=== PATIENT | female | born 1975 | race Hispanic/Latino ===

== ENCOUNTER → 2018-05-29 | Outpatient (CLI) | payer OTHER | END | disposition home or self-care (01) | LOC: RAH 07:25 | PROVIDERS: ATTEND Family Medicine | DX: M75.42 Impingement syndrome of left shoulder (principal); M75.41 Impingement syndrome of right shoulder | CPT/HCPCS: 73221 ==

== ENCOUNTER 2018-10-13 02:57 | Emergency (ER) | payer OTHER ==
[2018-10-13 03:30] LABS: BASOPHILS % (AUTO) 0.5 % (0.0-5.0); EOSINOPHILS % (AUTO) 1.1 % (0.0-8.0); LYMPHOCYTES % (AUTO) 24.2 % (21.0-51.0); MEAN CORPUSCULAR HEMOGLOBIN 30.5 pg (27.0-33.0); MEAN CORPUSCULAR HGB CONC 33.3 g/dL (32.0-36.0); MEAN CORPUSCULAR VOLUME 91.8 fL (79-99); NEUTROPHILS % (AUTO) 67.2 % (40.0-77.0); NUCLEATED RED BLOOD CELLS 0.2 % (0.0-0.19); PLATELET COUNT (AUTO) 314 K/uL (130-400); RED BLOOD CELL COUNT(AUTO) 4.57 MIL/uL (4.00-5.50); RED CELL DISTRIBUTION WIDTH 14.7 % (11.0-15.5); WHITE BLOOD COUNT (AUTO) 11.1 K/uL (4.8-10.8)
[2018-10-13 03:37] LABS: APPEARANCE,URINE CLEAR (CLEAR); BILIRUBIN,URINE NEGATIVE (NEGATIVE); COLOR,URINE YELLOW (YELLOW); GLUCOSE, URINE (UA) NEGATIVE (NEGATIVE); KETONES,URINE 5 mg/dL (NEGATIVE); LEUKOCYTE ESTERASE ,URINE NEGATIVE (NEGATIVE); NITRATE,URINE NEGATIVE (NEGATIVE); OCCULT BLOOD,URINE NEGATIVE (NEGATIVE); PROTEIN,URINE NEGATIVE (NEGATIVE); UROBILINOGEN,URINE 0.2 mg/dL (0.2-1.0)
[2018-10-13 03:39] LABS: HCG,QUAL RESULT NEGATIVE (NEGATIVE)
[2018-10-13 03:39] LABS: CREATININE 0.8 mg/dL (0.5-1.5); POTASSIUM 3.9 mmol/L (3.5-5.1)
[2018-10-13] MEDS ORDERED: MORPHINE SULFATE 4 MG/1ML SYG ONE ×2 (03:39→06:26)
[2018-10-13] MEDS ORDERED: ONDANSETRON HCL 4 MG/2 ML VIAL ONE (03:39)
[2018-10-13 03:43] LABS: ALBUMIN 3.7 g/dL (3.5-5.0); BILIRUBIN,TOTAL 0.4 mg/dL (0.2-1.0); TOTAL PROTEIN, SERUM 7.3 g/dL (6.0-8.3)
[2018-10-13] MEDS ORDERED: IOHEXOL-350 75 ML VIAL IV ONE (04:16)
== END 2018-10-13 07:56 | disposition home or self-care (01) ==
LOC: EDH 02:57
DX: R10.10 Upper abdominal pain, unspecified (principal); R11.2 Nausea with vomiting, unspecified; R19.7 Diarrhea, unspecified; E11.9 Type 2 diabetes mellitus without complications; Z88.8 Allergy status to other drugs, medicaments and biological substances; Z90.49 Acquired absence of other specified parts of digestive tract; Z72.0 Tobacco use
CPT/HCPCS: 36415; 74177; 80053; 81003; 81025; 83690; 84484; 85025; 93005; 96361; 96374; 96375; 96376; 99284; J2270 ×2; J2405; Q9967

== ENCOUNTER 2021-02-02 11:49 | Emergency (ER) | payer OTHER ==
[~2021-02-02] VITALS: Ht 167.6 cm; Wt 113.4 kg
[2021-02-02 11:51] VITALS: BP 125/81
[2021-02-02] MEDS ORDERED: LIDOCAINE HCL 2% VISCOUS 15 ML UDCUP PO ONE (14:30)
[2021-02-02] MEDS ORDERED: FAMOTIDINE 20MG VIAL IV ONE (14:30)
[2021-02-02] MEDS ORDERED: ONDANSETRON 4MG INJ IVP ONE (14:30)
[2021-02-02 14:42] LABS: BASOPHILS % (AUTO) 0.5 % (0.0-5.0); EOSINOPHILS % (AUTO) 1.9 % (0.0-8.0); HEMATOCRIT 41.1 % (36-48); LYMPHOCYTES % (AUTO) 42.8 % (21.0-51.0); MEAN CORPUSCULAR HEMOGLOBIN 30.2 pg (27.0-33.0); MEAN CORPUSCULAR HGB CONC 32.1 g/dL (32.0-36.0); MEAN CORPUSCULAR VOLUME 94.1 fL (79-99); MONOCYTES % (AUTO) 7.4 % (3.0-13.0); NEUTROPHILS % (AUTO) 46.7 % (40.0-77.0); PLATELET COUNT (AUTO) 256 K/uL (130-400); RED BLOOD CELL COUNT(AUTO) 4.37 MIL/uL (4.00-5.50); RED CELL DISTRIBUTION WIDTH 14.7 % (11.0-15.5); WHITE BLOOD COUNT (AUTO) 9.9 K/uL (4.8-10.8)
[2021-02-02 14:45] LABS: APPEARANCE,URINE Clear (CLEAR); BILIRUBIN,URINE Negative (NEGATIVE); COLOR,URINE Yellow (YELLOW); GLUCOSE, URINE (UA) >=1000 mg/dL (NEGATIVE); KETONES,URINE Trace mg/dL (NEGATIVE); LEUKOCYTE ESTERASE ,URINE Negative (NEGATIVE); NITRATE,URINE Negative (NEGATIVE); OCCULT BLOOD,URINE Negative (NEGATIVE); PROTEIN,URINE Negative (NEGATIVE); UROBILINOGEN,URINE 0.2 mg/dL (0.2-1.0)
[2021-02-02 14:49] LABS: HCG,QUAL RESULT NEGATIVE (NEGATIVE)
[2021-02-02 14:56] LABS: CREATININE 0.6 mg/dL (0.5-1.5); POTASSIUM 3.8 mmol/L (3.5-5.1)
[2021-02-02 15:01] LABS: ALBUMIN 3.5 g/dL (3.5-5.0); BACTERIA,URINE Few /HPF (None Seen); BILIRUBIN,TOTAL 0.4 mg/dL (0.2-1.0); RBC,URINE 0-1 /HPF (0-1); SQUAMOUS EPITHELIAL CELL,UR Few /HPF (0-2); TOTAL PROTEIN, SERUM 7.1 g/dL (6.0-8.3)
[2021-02-02 15:24] VITALS: BP 106/60
[2021-02-02] MEDS ORDERED: MAG/ALUM/SIMETH 30 ML UDCUP PO ONE (15:30)
[2021-02-02] MEDS ORDERED: FAMO-136 PO (15:34)
[2021-02-02] MEDS ORDERED: ONDA4TAB10 PO (15:34)
[2021-02-02] MEDS ORDERED: DICY20TA2 PO (15:34)
== END 2021-02-02 16:00 | disposition home or self-care (01) ==
LOC: EDH 11:49
DX: K29.70 Gastritis, unspecified, without bleeding (principal); E66.9 Obesity, unspecified; E11.9 Type 2 diabetes mellitus without complications; I10 Essential (primary) hypertension; Z68.41 Body mass index [BMI] 40.0-44.9, adult; Z79.899 Other long term (current) drug therapy
CPT/HCPCS: 36415; 71045; 76705; 80053; 81001; 81025; 83690; 84484; 85025; 93005; 96374; 96375; 99285; J2405; J3490

== ENCOUNTER → 2022-03-02 | Outpatient (CLI) | payer OTHER ==
[~2022-03-02] MED LIST: DICY20TA2 PO; FAMO-136 PO; ONDA4TAB10 PO
== END | disposition home or self-care (01) ==
LOC: SLP 20:35
PROVIDERS: ATTEND Family Medicine
DX: G47.33 Obstructive sleep apnea (adult) (pediatric) (principal)
CPT/HCPCS: 95810

== ENCOUNTER → 2022-03-03 | Outpatient (CLI) | payer OTHER | END | disposition home or self-care (01) | LOC: RAH 13:52 | PROVIDERS: ATTEND Family Medicine | DX: I11.9 Hypertensive heart disease without heart failure (principal); E78.5 Hyperlipidemia, unspecified; I34.0 Nonrheumatic mitral (valve) insufficiency; E66.9 Obesity, unspecified; E11.9 Type 2 diabetes mellitus without complications; I36.1 Nonrheumatic tricuspid (valve) insufficiency; I31.3 Pericardial effusion (noninflammatory); G47.33 Obstructive sleep apnea (adult) (pediatric) | CPT/HCPCS: 93306 ==

== ENCOUNTER → 2022-03-19 | Outpatient (CLI) | payer OTHER | END | disposition home or self-care (01) | LOC: SLP 20:17 | PROVIDERS: ATTEND Family Medicine | DX: G47.33 Obstructive sleep apnea (adult) (pediatric) (principal); R06.83 Snoring; R09.02 Hypoxemia | CPT/HCPCS: 95811 ==

== ENCOUNTER → 2022-03-30 | Outpatient (CLI) | payer OTHER | END | disposition home or self-care (01) | LOC: RAH 08:43 | PROVIDERS: ATTEND Internal Medicine Gastroenterology | DX: K76.0 Fatty (change of) liver, not elsewhere classified (principal); R10.13 Epigastric pain | CPT/HCPCS: 76700 ==

== ENCOUNTER → 2022-05-03 | Outpatient (CLI) | payer OTHER | END | disposition home or self-care (01) | LOC: RAH 07:19 | PROVIDERS: ATTEND Internal Medicine Gastroenterology | DX: R10.13 Epigastric pain (principal); R11.2 Nausea with vomiting, unspecified | CPT/HCPCS: 78264; A9541 ==

== ENCOUNTER 2022-10-04 09:30 | Inpatient (IN) | payer OTHER ==
[~2022-10-04] VITALS: Ht 167.6 cm; Wt 98.0 kg
[2022-10-04 10:41] LABS: BASOPHILS % (AUTO) 0.4 % (0.0-5.0); EOSINOPHILS % (AUTO) 2.1 % (0.0-8.0); HEMATOCRIT 40.9 % (36-48); LYMPHOCYTES % (AUTO) 46.4 % (21.0-51.0); MEAN CORPUSCULAR HEMOGLOBIN 32.8 pg (27.0-33.0); MEAN CORPUSCULAR VOLUME 99.3 fL (79-99); MONOCYTES % (AUTO) 9.4 % (3.0-13.0); NEUTROPHILS % (AUTO) 41.1 % (40.0-77.0); PLATELET COUNT (AUTO) 206 K/uL (130-400); RED BLOOD CELL COUNT(AUTO) 4.12 MIL/uL (4.00-5.50); RED CELL DISTRIBUTION WIDTH 12.7 % (11.0-15.5); WHITE BLOOD COUNT (AUTO) 5.2 K/uL (4.8-10.8)
[2022-10-04 10:51] LABS: CREATININE 0.8 mg/dL (0.5-1.5); POTASSIUM 4.1 mmol/L (3.5-5.1)
[2022-10-04 11:27] VITALS: BP 109/61
[2022-10-04] MEDS ORDERED: ZALE10CA26 PO (11:39)
[2022-10-04] MEDS ORDERED: DULO60CA64 PO (11:39)
[2022-10-04] MEDS ORDERED: DIVA-78 PO (11:39)
[2022-10-04] MEDS ORDERED: BENZ2TAB10 PO (11:39)
[2022-10-04] MEDS ORDERED: LEVE1000 PO ×2 (11:39)
[2022-10-04] MEDS ORDERED: FENO160T16 PO (11:39)
[2022-10-04] MEDS ORDERED: ROSU10TA28 PO (11:39)
[2022-10-04] MEDS ORDERED: LAMO100T16 PO (11:39)
[2022-10-04] MEDS ORDERED: OMEP40CA21 PO (11:39)
[2022-10-04] MEDS ORDERED: QUET400T13 PO (11:39)
[2022-10-04] MEDS ORDERED: GABA300C PO ×2 (11:39)
[2022-10-06] VITALS (28 sets, daily range): BP systolic 104–144; BP diastolic 47–82
[2022-10-06] MEDS ORDERED: 0.9%NACL 1000ML 1,000 ML IV ONE (07:02)
[2022-10-06] MEDS ORDERED: CEFAZOLIN SODIUM 2 GM VIAL ONE (07:03)
[2022-10-06] MEDS ORDERED: BUPIVACAINE/PF 0.25% 10ML VIAL IJ ONE (07:27)
[2022-10-06] MEDS ORDERED: MIDAZOLAM HCL 1 MG/ML 2ML VIAL ONE (09:56)
[2022-10-06] MEDS ORDERED: ONDANSETRON 4MG INJ ONE (09:57)
[2022-10-06] MEDS ORDERED: CEFAZOLIN SODIUM 2 GM VIAL IVPB ONE (10:15)
[2022-10-06] MEDS ORDERED: ROCURONIUM 10MG/1ML SYR 10 MG/ML ML ONE (10:20)
[2022-10-06] MEDS ORDERED: PROPOFOL 10 MG/ML 20ML VIAL IV ONE (10:20)
[2022-10-06] MEDS ORDERED: FENTANYL CITRATE PF 50 MCG/1 ML 2ML VIAL ONE ×4 (10:32→12:52)
[2022-10-06] MEDS ORDERED: DEXAMETHASONE SOD PHOSPHATE 10MG/ML 1ML VIAL ONE (11:01)
[2022-10-06] MEDS ORDERED: KETOROLAC 30MG VIAL (30MG/ML) ONE (11:47)
[2022-10-06] MEDS ORDERED: NEOSTIGMINE 5MG/5ML SYR IV ONE (11:48)
[2022-10-06] MEDS ORDERED: GLYCOPYRROLATE 1 MG/5 ML SYRINGE ONE (11:48)
[2022-10-06] MEDS ORDERED: HYDROCODONE/ACETAMINOPHEN 7.5/325 MG 15 ML UDCUP PO PRN (12:00)
[2022-10-06] MEDS ORDERED: NALOXONE HCL 0.4 MG/1 ML ML IVP PRN (12:00)
[2022-10-06] MEDS ORDERED: PROCHLORPERAZINE 10MG/2ML INJ IV PRN (12:00)
[2022-10-06] MEDS ORDERED: ONDANSETRON 4MG INJ IVP PRN (12:00)
[2022-10-06] MEDS ORDERED: MEPERIDINE-PF 25 MG/ML SYG ONE ×2 (12:30→12:43)
[2022-10-06] MEDS: ENOXAPARIN SODIUM 30 MG/0.3 ML SQ SCH ×2 (14:48→23:44)
[2022-10-06] MEDS: 1/2NS+20MEQ KCL/1000ML 1,000 ML IV SCH ×2 (14:49→23:43)
[2022-10-06] MEDS: KETOROLAC 30MG VIAL (30MG/ML) IV PRN (14:54)
[2022-10-06] MEDS: MORPHINE 4 MG SYG IVP PRN (17:32)
[2022-10-07 00:11] VITALS: BP 130/74
[2022-10-07] MEDS: MORPHINE 4 MG SYG IVP PRN ×2 (01:40→09:50)
[2022-10-07 04:34] VITALS: BP 135/68
[2022-10-07] MEDS: KETOROLAC 30MG VIAL (30MG/ML) IV PRN ×2 (06:15→13:42)
[2022-10-07] MEDS: SIMETHICONE 80 MG TAB.CHEW PO PRN ×2 (06:18→09:50)
[2022-10-07 08:00] VITALS: BP 112/59
[2022-10-07] MEDS ORDERED: PANTOPRAZOLE 40 MG/VIAL IVP SCH (09:00)
[2022-10-07] MEDS: 1/2NS+20MEQ KCL/1000ML 1,000 ML IV SCH (09:08)
[2022-10-07 11:14] VITALS: BP 122/71
[2022-10-07] MEDS: ENOXAPARIN SODIUM 30 MG/0.3 ML SQ SCH (11:59)
[2022-10-07 12:03] VITALS: BP 122/71
== END 2022-10-07 16:15 | disposition home or self-care (01) | DRG 328 ==
LOC: DAHIP 10-06 06:52 → 4DH 10-06 14:09
PROVIDERS: ADMIT Surgery; ATTEND Surgery
PROC: 0DB64ZZ Excision of Stomach, Percutaneous Endoscopic Approach (ICD-10-PCS; principal; 2022-10-06 10:14)
PROC: 0D164ZA Bypass Stomach to Jejunum, Percutaneous Endoscopic Approach (ICD-10-PCS; 2022-10-06 10:14)
PROC: 0DJ08ZZ Inspection of Upper Intestinal Tract, Via Natural or Artificial Opening Endoscopic (ICD-10-PCS; 2022-10-06 10:14)
DX: K31.84 Gastroparesis (principal); Z20.822 Contact with and (suspected) exposure to COVID-19; K30 Functional dyspepsia; E66.01 Morbid (severe) obesity due to excess calories; Z68.34 Body mass index [BMI] 34.0-34.9, adult
CPT/HCPCS: 36415; 43235; 80048; 82948; 84703; 85025; 86850; 86900; 86901; 87426; C9113; G0378; J1100; J1650; J1885; J2175; J2250; J2270; J2405; J2704; J2710; J3010; J3480; J3490; J7030

== ENCOUNTER 2022-11-22 13:50 | Observation (INO) | payer OTHER ==
[~2022-11-22] VITALS: Ht 167.6 cm; Wt 87.5 kg
[~2022-11-22 13:50] MED LIST changes: +BENZ2TAB70 PO; -DICY20TA2 PO; +DIVA-78 PO; +DULO60CA64 PO; -FAMO-136 PO; +FENO160T16 PO; +GABA300C PO; +LAMO100T16 PO; +LEVE1000 PO; +OMEP40CA21 PO; -ONDA4TAB10 PO; +QUET400T13 PO; +ROSU10TA28 PO; +ZALE10CA26 PO
[2022-11-22 15:52] LABS: BASOPHILS % (AUTO) 0.4 % (0.0-5.0); EOSINOPHILS % (AUTO) 3.6 % (0.0-8.0); HEMATOCRIT 36.3 % (36-48); LYMPHOCYTES % (AUTO) 44.2 % (21.0-51.0); MEAN CORPUSCULAR HGB CONC 32.5 g/dL (32.0-36.0); MEAN CORPUSCULAR VOLUME 98.4 fL (79-99); MONOCYTES % (AUTO) 7.1 % (3.0-13.0); NEUTROPHILS % (AUTO) 44.1 % (40.0-77.0); PLATELET COUNT (AUTO) 218 K/uL (130-400); RED BLOOD CELL COUNT(AUTO) 3.69 MIL/uL (4.00-5.50); RED CELL DISTRIBUTION WIDTH 13.4 % (11.0-15.5); WHITE BLOOD COUNT (AUTO) 7.2 K/uL (4.8-10.8)
[2022-11-22 16:04] LABS: APPEARANCE,URINE CLEAR (CLEAR); BILIRUBIN,URINE NEGATIVE (NEGATIVE); COLOR,URINE YELLOW (YELLOW); GLUCOSE, URINE (UA) NEGATIVE (NEGATIVE); KETONES,URINE 5 mg/dL (NEGATIVE); LEUKOCYTE ESTERASE ,URINE 25 Leu/uL (NEGATIVE); NITRATE,URINE NEGATIVE (NEGATIVE); OCCULT BLOOD,URINE NEGATIVE (NEGATIVE); PROTEIN,URINE 30 mg/dL (NEGATIVE)
[2022-11-22 16:05] LABS: CREATININE 0.8 mg/dL (0.5-1.5); POTASSIUM 3.7 mmol/L (3.5-5.1)
[2022-11-22 16:09] LABS: BACTERIA,URINE RARE /HPF (None Seen); MUCUS,URINE MOD LPF (None Seen); SQUAMOUS EPITHELIAL CELL,UR RARE /HPF (0-2)
[2022-11-22 16:10] LABS: ALBUMIN 3.2 g/dL (3.5-5.0); TOTAL PROTEIN, SERUM 6.4 g/dL (6.0-8.3)
[2022-11-22] MEDS ORDERED: DOCUSATE SODIUM 100 MG CAP PO PRN (18:00)
[2022-11-22] MEDS ORDERED: CLONIDINE HCL 0.1 MG TABLET PO PRN (18:00)
[2022-11-22] MEDS ORDERED: LABETALOL 20MG SYG IV PRN (18:00)
[2022-11-22] MEDS ORDERED: ACETAMINOPHEN 650 MG SUPPOSITORY RC PRN (18:00)
[2022-11-22] MEDS ORDERED: ACETAMINOPHEN 325 MG TAB PO PRN (18:00)
[2022-11-22] MEDS ORDERED: LACTULOSE 20 GM/30 ML UDCUP PO PRN (18:00)
[2022-11-22] MEDS ORDERED: CEFTRIAXONE 2GM VIAL IVPB SCH (18:00)
[2022-11-22] MEDS ORDERED: ONDANSETRON 4MG INJ IVP PRN (18:00)
[2022-11-22] MEDS ORDERED: TEMAZEPAM 15 MG CAPSULE PO PRN (18:00)
[2022-11-22] MEDS ORDERED: HYDRALAZINE 20MG/ML VIAL IV PRN (18:00)
[2022-11-22 18:01] VITALS: BP 116/56
[2022-11-23] MEDS ORDERED: ENOXAPARIN SODIUM 30 MG/0.3 ML SQ SCH (09:00)
== END 2022-11-22 19:02 | disposition left against medical advice (07) ==
LOC: EDH 13:50 → EDHIP 17:40 → EDH 19:09
PROVIDERS: ADMIT Internal Medicine Critical Care Medicine; ATTEND Internal Medicine Critical Care Medicine
DX: R55 Syncope and collapse (principal); R29.6 Repeated falls; I10 Essential (primary) hypertension; R56.9 Unspecified convulsions; E11.9 Type 2 diabetes mellitus without complications; Z79.899 Other long term (current) drug therapy; Z98.890 Other specified postprocedural states
CPT/HCPCS: 99284; 70450; 80053; 85025; 87088; 81001; 81025; 36415; 70486; 93005; G0378

== ENCOUNTER 2023-03-21 13:19 | Emergency (ER) | payer OTHER ==
[~2023-03-21] VITALS: Ht 167.6 cm; Wt 78.9 kg
[2023-03-21 15:58] LABS: BASOPHILS # (AUTO) 0.03 K/uL (0.00-0.20); BASOPHILS % (AUTO) 0.5 % (0.0-5.0); EOSINOPHILS # (AUTO) 0.07 K/uL (0.00-0.70); EOSINOPHILS % (AUTO) 1.2 % (0.0-8.0); HEMATOCRIT 34.5 % (36-48); IMMATURE GRANULOCYTE ABSOLUTE 0.03 K/uL (0-1); LYMPHOCYTES # (AUTO) 2.9 K/uL (1.0-4.8); LYMPHOCYTES % (AUTO) 51.4 % (21.0-51.0); MEAN CORPUSCULAR HGB CONC 32.8 g/dL (32.0-36.0); MEAN CORPUSCULAR VOLUME 100.9 fL (79-99); MONOCYTES # (AUTO) 0.5 K/uL (0.1-1.0); MONOCYTES % (AUTO) 8.5 % (3.0-13.0); NEUTROPHILS # (AUTO) 2.1 K/uL (1.8-7.7); NEUTROPHILS % (AUTO) 37.9 % (40.0-77.0); PLATELET COUNT (AUTO) 212 K/uL (130-400); RED BLOOD CELL COUNT(AUTO) 3.42 MIL/uL (4.00-5.50); RED CELL DISTRIBUTION WIDTH 13.1 % (11.0-15.5); WHITE BLOOD COUNT (AUTO) 5.6 K/uL (4.8-10.8)
[2023-03-21] MEDS ORDERED: TETANUS/DIPHTHERIA TOXOID [ADULT] 0.5 ML VIAL IM ONE (16:00)
[2023-03-21] MEDS ORDERED: KETOROLAC 60 MG VIAL (30MG/ML) IM ONE (16:00)
[2023-03-21] MEDS ORDERED: CEFTRIAXONE 2GM VIAL IJ ONE (16:00)
[2023-03-21 16:05] LABS: CARBON DIOXIDE 30 mmol/L (21-32); CHLORIDE 105 mmol/L (101-111); CREATININE 0.8 mg/dL (0.5-1.5); GLOMERULAR FILTR. RATE CALC 91 mL/min (>90); GLUCOSE,RANDOM 77 mg/dL (70-105); POTASSIUM 4.4 mmol/L (3.5-5.1); SODIUM SERUM 141 mmol/L (136-145); UREA NITROGEN, BLOOD 28 mg/dL (7-18)
[2023-03-21 16:09] LABS: APPEARANCE,URINE CLEAR (CLEAR); BILIRUBIN,URINE 0.5 mg/dL (NEGATIVE); COLOR,URINE YELLOW (YELLOW); GLUCOSE, URINE (UA) NEGATIVE (NEGATIVE); KETONES,URINE 5 mg/dL (NEGATIVE); LEUKOCYTE ESTERASE ,URINE NEGATIVE Leu/uL (NEGATIVE); NITRATE,URINE NEGATIVE (NEGATIVE); OCCULT BLOOD,URINE NEGATIVE (NEGATIVE); PH,URINE 5.5 (5.0-8.0); PROTEIN,URINE 20 mg/dL (NEGATIVE)
[2023-03-21 16:09] LABS: ALANINE AMINOTRANSFERASE 21 U/L (12-78); ALBUMIN 3.2 g/dL (3.5-5.0); ASPARTATE AMINOTRANSFERASE 29 U/L (10-37); BILIRUBIN,TOTAL 0.3 mg/dL (0.2-1.0); TOTAL PROTEIN, SERUM 5.9 g/dL (6.0-8.3)
[2023-03-21 16:10] LABS: ADD UA MICROSCOPIC YES
[2023-03-21 16:10] LABS: ACETAMINOPHEN < 1 mcg/mL (10-30); ALCOHOL, BLOOD < 3 mg/dL (0-10); SALICYLATE < 2.8 mg/dL (2.8-20.0)
[2023-03-21 16:12] LABS: BACTERIA,URINE RARE /HPF (None Seen); MUCUS,URINE FEW LPF (None Seen); SQUAMOUS EPITHELIAL CELL,UR FEW /HPF (0-2)
[2023-03-21 16:16] LABS: AMPHET/METH SCREEN,URINE NEGATIVE (NEGATIVE); BARBITURATE SCREEN, URINE NEGATIVE (NEGATIVE); BENZODIAZEPINES SCREEN,URINE NEGATIVE (NEGATIVE); CANNABINOID SCREEN,URINE NEGATIVE (NEGATIVE); COCAINE SCREEN,URINE NEGATIVE (NEGATIVE); OPIATE SCREEN,URINE NEGATIVE (NEGATIVE); PHENCYCLIDINE SCREEN,URINE NEGATIVE (NEGATIVE)
[2023-03-21 16:55] LABS: HCG,QUALITATIVE URINE NEGATIVE (NEGATIVE)
[2023-03-21 18:45] VITALS: BP 124/78; PULSE 87; RESP 18; O2SAT 98
== END 2023-03-21 20:20 | disposition left against medical advice (07) ==
LOC: EDH 13:19
DX: S61.512A Laceration without foreign body of left wrist, initial encounter (principal); I10 Essential (primary) hypertension; E11.9 Type 2 diabetes mellitus without complications; F31.9 Bipolar disorder, unspecified; F41.9 Anxiety disorder, unspecified; Z88.8 Allergy status to other drugs, medicaments and biological substances; X78.1XXA Intentional self-harm by knife, initial encounter; Y93.89 Activity, other specified; Y92.89 Other specified places as the place of occurrence of the external cause; Y99.8 Other external cause status
CPT/HCPCS: 99285; 70450; 71045; 80053; 80305; 85025; 81025; 36415; 90714; 72170; 72125; 70486; 96372; 90471; 81001; J0696; J1885; G0481

== ENCOUNTER → 2023-07-19 | Outpatient (CLI) | payer OTHER | END | disposition home or self-care (01) | LOC: RAH 08:20 | PROVIDERS: ATTEND Surgery | DX: K31.84 Gastroparesis (principal); K44.9 Diaphragmatic hernia without obstruction or gangrene | CPT/HCPCS: 74240 ==

== ENCOUNTER 2024-05-11 17:00 | Inpatient (IN) | payer OTHER ==
[~2024-05-11] VITALS: Ht 167.6 cm; Wt 85.5 kg
[2024-05-11 13:40] VITALS: BP 97/61; PULSE 77; RESP 18; TEMP 97.8
[2024-05-11 13:43] LABS: BASOPHILS # (AUTO) 0.04 K/uL (0.00-0.20); BASOPHILS % (AUTO) 0.6 % (0.0-5.0); EOSINOPHILS # (AUTO) 0.08 K/uL (0.00-0.70); EOSINOPHILS % (AUTO) 1.2 % (0.0-8.0); HEMATOCRIT 39.3 % (36-48); IMMATURE GRANULOCYTE ABSOLUTE 0.02 K/uL (0-1); LYMPHOCYTES % (AUTO) 44.3 % (21.0-51.0); MEAN CORPUSCULAR HEMOGLOBIN 32.3 pg (27.0-33.0); MEAN CORPUSCULAR HGB CONC 32.8 g/dL (32.0-36.0); MEAN CORPUSCULAR VOLUME 98.3 fL (79-99); MONOCYTES # (AUTO) 0.4 K/uL (0.1-1.0); MONOCYTES % (AUTO) 5.6 % (3.0-13.0); NEUTROPHILS # (AUTO) 3.2 K/uL (1.8-7.7); PLATELET COUNT (AUTO) 231 K/uL (130-400); RED CELL DISTRIBUTION WIDTH 13.3 % (11.0-15.5); WHITE BLOOD COUNT (AUTO) 6.7 K/uL (4.8-10.8)
[2024-05-11 13:52] LABS: ALBUMIN 3.4 g/dL (3.5-5.0); BILIRUBIN,TOTAL 0.4 mg/dL (0.2-1.0); CREATININE 0.9 mg/dL (0.5-1.0); POTASSIUM 4.1 mmol/L (3.5-5.1); TOTAL PROTEIN, SERUM 6.6 g/dL (6.0-8.3)
[2024-05-11 13:57] LABS: INR 1.01 (0.85-1.15); PROTHROMBIN TIME 10.9 SEC (9.6-11.6)
[2024-05-11 13:59] LABS: PARTIAL THROMBOPLASTIN TIME 25.3 SEC (26.3-35.5)
[~2024-05-11 17:00] MED LIST changes: -BENZ2TAB70 PO; +BENZ2TAB71 PO; -ROSU10TA28 PO; +ROSU10TA72 PO
--- NOTE | 2024-05-12 19:46 | EKG ---
[facility] Test Date: 2024-05-11 Test Time: 13:23:02 Pat Name: KINJAL HOLLIS Department: Patient ID: [facility] [id number] Room: Gender: F Flame Channeler: [id number] : 1975 Requested By: MICHELLE MILLS Order Number: [id number] Reading MD: Josse Chamberlain Measurements Intervals [place] Rate: 72 P: 38 SC: 170 QRS: 28 QRSD: 80 T: 26 QT: 360 QTc: 395 Interpretive Statements Sinus rhythm Compared to ECG 11/22/2022 13:58:24 No significant changes Electronically Signed On 05-14-2024 13:12:15 MEDICAL OFFICE WORKER by Josse Chamberlain Please click the below link to view image of tracing.
[2024-05-15] VITALS (25 sets, daily range): BP systolic 99–140; BP diastolic 59–79; PULSE 79–95; RESP 15–21; TEMP 97.3–98.1; O2SAT 98–100
[2024-05-15] MEDS: MEROPENEM 1 GM VIAL ONE (08:42)
[2024-05-15] MEDS: acetaMINOPHEN 100 ML ONE (08:45)
[2024-05-15] MEDS: FAMOTIDINE 20MG VIAL IV ONE (08:46)
[2024-05-15] MEDS ORDERED: LIDOCAINE PF 100MG/5ML (2%) SYRINGE 5ML ONE (08:51)
[2024-05-15] MEDS ORDERED: rocuRONium bROMide 10MG/1ML 5ML VL ONE ×2 (08:51→10:18)
[2024-05-15] MEDS ORDERED: proPOFol 10 MG/ML 20ML VIAL IV ONE (08:51)
[2024-05-15] MEDS ORDERED: FENTanyl CITRate PF 50 MCG/1 ML 2ML VIAL ONE (08:52)
[2024-05-15] MEDS ORDERED: ketaMINE 50MG/ML SYRINGE 50 MG/ML DISP.SYRIN ONE (09:06)
[2024-05-15] MEDS ORDERED: dexaMETHasone SOD PHOSPHATE 10MG/ML 1ML VIAL ONE (09:36)
[2024-05-15] MEDS ORDERED: ondanSETRON 4MG INJ ONE (09:36)
[2024-05-15] MEDS ORDERED: phenylEPHRINE HCL 10 MG/ML 1ML VIAL IV ONE ×2 (09:55→11:42)
[2024-05-15] MEDS: LIDOCAINE 1%-EPI 1:100,000 20 ML VIAL ONE (10:20)
[2024-05-15] MEDS: BUPIvacaine/PF 0.25% 30ML VIAL IJ ONE (10:20)
[2024-05-15] MEDS ORDERED: GLYCOPYRROLATE 0.2 MG/ML 5 ML VIAL ONE (10:37)
[2024-05-15] MEDS ORDERED: NEOSTIGMINE METHYLSULFATE 1MG/ML IV ONE (10:37)
[2024-05-15] MEDS ORDERED: ONDA-105 PO (10:43)
[2024-05-15] MEDS ORDERED: MIDO10TA3 PO (10:43)
[2024-05-15] MEDS ORDERED: THIA100T91 PO (10:43)
[2024-05-15] MEDS ORDERED: LEVE750T4 PO (10:43)
[2024-05-15] MEDS ORDERED: ROSU10TA72 PO (10:43)
[2024-05-15] MEDS ORDERED: ESOM40CA66 PO (10:43)
[2024-05-15] MEDS ORDERED: SEMA2PEN SQ (10:43)
[2024-05-15] MEDS ORDERED: DIVA-76 PO (10:43)
[2024-05-15] MEDS ORDERED: LINA290C PO (10:43)
[2024-05-15] MEDS ORDERED: QUET400T13 PO (10:43)
[2024-05-15] MEDS ORDERED: FENO160T16 PO (10:43)
[2024-05-15] MEDS ORDERED: DULO60CA64 PO (10:43)
[2024-05-15] MEDS ORDERED: LAMO100T16 PO (10:43)
[2024-05-15] MEDS ORDERED: GABA300C PO (10:43)
[2024-05-15] MEDS ORDERED: BENZ2TAB71 PO (10:43)
[2024-05-15] MEDS: 0.9%NACL 1000ML 1,000 ML IV ONE (10:44)
[2024-05-15] MEDS ORDERED: ePHEDrine SULFate 50 MG/ML AMPULE ONE (11:10)
[2024-05-15] MEDS: INDOCYANINE GREEN 25 MG VIAL IJ ONE (13:15)
--- NOTE | 2024-05-15 16:55 | OP ---
Operative Note: DATE OF PROCEDURE: 05/15/24 SURGEON: MICHELLE MILLS MD SALES REPRESENTATIVE CHURCH FURNITURE: None ANESTHESIA: General ANESTHESIOLOGIST/RUBBER TIRE AND TUBES SUPERVISOR: RUBBER TIRE AND TUBES SUPERVISOR PREOPERATIVE DIAGNOSIS: Colonic inertia POSTOPERATIVE DIAGNOSIS: Colonic inertia PROCEDURE: Robotic total colectomy with ileorectal anastomosis Extensive lysis of adhesions lasting greater than 1 hour, extended procedural service, not typical for this type of case Omental flap creation Systemic ICG For assessment of anastomotic grafts Flexible sigmoidoscopy for anastomotic leak test ESTIMATED BLOOD LOSS: 50 cc INDICATIONS: Ms. Fry is a very pleasant 48-year-old female who has life altering constipation which has been refractory to medical management, she underwent extensive workup and was found to have colonic inertia and given her poor quality of life due to her bowel function she wished to proceed with surgery. Complications, alternatives, risks and benefits of the procedure were thoroughly discussed and include but not limited to infection, bleeding, injury to surrounding structures such as blood vessels nerves and other organs, anastomotic leak, sepsis, need for additional procedures, need for stoma, continued constipation and poor bowel function, recurrence disease as well as the need for additional procedures. The patient was voiced complete understanding wished to proceed with surgery. All of her and her significant other's questions were answered to their satisfaction. DESCRIPTION OF PROCEDURE: After informed consent was obtained, the patient was taken to the operating room and laid in the supine position. Once general endotracheal anesthesia was obtained, the patient was carefully placed into lithotomy position. Next the abdomen was prepped and draped in the usual sterile fashion. A time-out was performed confirming the correct patient procedure. Next a Veress needle was inserted and confirmed to be intra-abdominal with a saline drop test. Pneumoperitoneum was obtained. An 8 mm incision was made followed by placement of an 8 mm trocar. The camera was inserted in the abdomen was inspected there was no significant findings other than significant amount of adhesions in the right upper quadrant from her prior open colectomy. There was also an obvious gastrojejunostomy in antecolic fashion. We placed the remaining trocars in a horizontal fashion across the abdomen. We then spent greater than 1 hour taken down and lysing adhesions in the right upper quadrant from her prior open cholecystectomy. Once this was done and we are able to store normal anatomy we then took the omentum off the transverse colon and work towards the hepatic flexure. We took down the hepatic flexure and mobilized the right colon a lateral to medial manner. Once this was done we then isolated the ileocolic pedicle identified in the duodenum and protecting it throughout the entirety of the case. Once this was done we then isolated the ileocolic artery and vein and took them separately with the vessel sealer. Once this was done we took the m esentery of the right colon over to the transverse colon. We then encountered the anti colic gastrojejunostomy which need this portion of the case very difficult. We carefully took off the omentum of the transverse colon and did this all the way to the splenic flexure. We then took the mesentery of the transverse colon. We then transected the transverse colon with a blue load s tapler and then brought the transverse colon deep to the gastrojejunostomy and continued the dissection towards the splenic flexure. We took down the splenic flexure and then took the remaining mesentery. We then mobilized the descending colon in a lateral to medial manner. It took the mesentery. We then redocked the robot into the pelvic area and mobilize the sigmoid colon a lateral to medial manner. We identified of the left ureter and protected it throughout the entirety of the case. Once this was done we isolated the DYANA pedicle and took it with a white load stapler. We then mobilized the upper rectum in the presacral space. We then made a defect in the mesorectum just deep to the upper rectum. In took this with the vessel sealer. We then transected the upper rectum with a blue load stapler. Once this was done we then took the mesentery up to the terminal ileum. We then made a Pfannenstiel incision followed by placement of a wound protector. We then made an enterotomy and placed a to five EEA anvil in the anti mesenteric manner through the terminal ileum. We then gave systemic ICG to assess the blood flow for the anastomotic grasped. The terminal ileum and rectum are well-perfused. We also assessed the omentum to confirm it was well-perfused throughout. We then transected the terminal ileum and through the Pfannenstiel incision extracted the specimen. Once this was done we then made of the two wounds performed a side to end anastomosis. Once this was done anastomotic leak test was done and was negative. We then oversewed the anastomosis with a running V lock suture. We then gained hemostasis. We then left a drain into the pelvis. We then created an omental flap and places down over the anastomosis. We placed hemostatic pattern through out the abdomen. Once this was done the trocars were removed, we secured the drain is in place. We then closed the fascia with PDS sutures. We then thoroughly irrigated the wound with a post saline and Betadine solution. We then closed all skin incisions with Monocryl sutures and Dermabond was placed a sterile dressing. The patient tolerated the procedure well was taken to the recovery room stable condition. I discussed the above with the life partner at completion of the case. Complications none Specimens: Total Colon Counts were reported as correct x2 by nursing staff MICHELLE MILLS MD May 15, 2024 16:55
[2024-05-15] MEDS ORDERED: OXYcodONE HCL 5 MG TAB PO PRN (17:00)
[2024-05-15] MEDS ORDERED: INSULIN humuLIN R 100 UNIT/ML 3ML SQ PRN (17:00)
[2024-05-15] MEDS: FENTanyl CITRate PF 50 MCG/1 ML 2ML VIAL ONE (17:02)
[2024-05-15] MEDS: MEPERIDINE-PF 25 MG/ML SYG ONE (17:11)
[2024-05-15] MEDS: LACTATED RINGERS 1000ML 1,000 ML IV SCH (18:10)
[2024-05-15] MEDS: acetaMINOPHEN 325 MG TAB PO SCH (19:08)
[2024-05-15] MEDS: ondanSETRON 4MG INJ IVP PRN (19:42)
--- NOTE | 2024-05-15 20:23 | CONS ---
[facility] CONSULTATION NOTE Date of Service: May 15, 2024 Reason for Consultation: [ ] Requesting Physician: [ ] PCP: Farooq Morrison HISTORY OF PRESENT ILLNESS: This is a 48-year-old female with past medical history of diabetes, hyperlipidemia, anxiety disorder, depression,obesity, gastritis, GERD, fatty liver disease, seizure disorder, bariatric surgery, gastroparesis , colonic polyps and chronic constipation who under S/P robotic total colectomy with ileorectal anastomosis with extensive lysis of adhesions,omental flap creation ,systemic ICG and flexible sigmoidoscopy performed by Dr.Dustin Cano today 05/15/2024. Seen and examined patient in [id number] awake,alert and coherent,appears uncomfortable on oxygen supplementation 3L/NC.Patient continue to complain of abdominal pain.Patient denies fever,chills,nausea,vomiting ,chest pain and palp itation.Patient reports last seizure episode was last month ago.Patient also reports her las bowel movement was today prior to surgery and patient also reports she is belching and has not passed gas yet.Patient has normal bowel sounds to all quadrants and already started on clear liquid per surgery recommendation. Latest vital signs temperature 98.1, heart rate 91, blood pressure 139/79, saturation 100% at 2 L nasal cannula.Hospitalist is consulted for medical management . REVIEW OF SYSTEMS CONSTITUTIONAL: Denies fevers, chills, or night sweats. No unintentional weight loss reported. NEUROLOGICAL: Denies headache, amaurosis fugax, motor weakness, sensory deficit, vertigo/spinning sensation, gait abnormalities, or tremors. ENT: No hearing loss, otalgia, otorrhea, rhinitis, rhinorrhea, hoarseness, or sore throat. CARDIOVASCULAR: Denies any exertional angina, dyspnea on exertion, orthopnea, paroxysmal nocturnal dyspnea, palpitations, life-threatening arrhythmias, claudication. PULMONARY: Denies any shortness of breath, cough, phlegm/sputum, hemoptysis, pleuritic chest pain. SLEEP: Denies morning headaches, daytime somnolence or napping. Denies difficulty falling asleep, staying asleep, waking from sleep. Denies knowledge of snoring. GASTROINTESTINAL:+ abdominal pain to incision site Denies any type of dysphagia to either liquids or solids. Denies nausea, vomiting, pyrosis, early satiety, diarrhea, constipation, or changes in stool consistency or caliber. Denies coffee-ground emesis, hematemesis, hematochezia, or melanotic stools. GENITOURINARY: Denies frequency, urgency, nocturia, hematuria or incontinence (Storage/Irritative symptoms.) Low urinary stream, straining to void, urinary intermittency or hesitancy, splitting of the voiding stream, terminal dribbling. ENDOCRINOLOGIC: Denies polyuria, polydipsia, polyphagia or heat/cold intolerances. HEMATOLOGIC: Denies thrombophilia/previous clots, or coagulopathy/bleeding disorders. ONCOLOGIC: Denies personal history of malignancy. DERMATOLOGIC: Denies rashes or pruritus. PSYCHIATRIC: Denies any suicidal or homicidal ideation. Denies hallucinations. PAST MEDICAL HISTORY: [diabetes, hyperlipidemia, anxiety disorder, depression,obesity, gastritis, GERD, fatty liver disease, seizure disorder, bariatric surgery, gastroparesis , colonic polyps and chronic constipation ] PAST SURGICAL HISTORY: [ Hernia repair 2004, cholecystectomy 2004, laparoscopic gastro on October 06, 2022, EGD on December 21, 2022 and colonoscopy on February 21, 2023 ] PAST SOCIAL HISTORY: [ Patient lives with partner. Patient denies alcohol and recreational drug use admits to smoking five cigarettes per day ] FAMILY HISTORY: [ Cancer] Coded Allergies: carbamazepine (Unverified Allergy, Unknown, 02/02/21) PHYSICAL EXAM GENERAL APPEARANCE: The patient is awake, alert, and oriented, in no acute cardiopulmonary distress. NEUROLOGICAL: Cranial nerves II-XII grossly intact. Motor is 5/5 in bilateral upper and lower extremities proximal to distal. No sensory deficits. HEENT: Face is symmetric. Pupils are equal and reactive. Extraocular movements are intact. NECK: Supple. No JVD. No thyromegaly. No submental, submandibular, pre- /postauricular, occipital or supraclavicular lymphadenopathy. CHEST: Normal chest expansion. No Telemetry. LUNGS: Absence of any rales, rhonchi or any wheezing. CARDIOVASCULAR: Regular. S1 and S2 normal. No appreciable rubs, murmurs or gallops. ABDOMEN: Diffuse Abdominal tenderness on light palpation.Left DAGMAR Soft and nondistended. There is no rebound, voluntary guarding, or rigidity. : Deferred.+ Ahumada. EXTREMITIES: Non-edematous and not cyanotic. No clubbing. Good capillary refill. SKIN: No skin breakdown. Vital Sign (Last 24 Hours) 05/15/24 05/15/24 18:00 19:00 Temp 98.1 Pulse 91 Resp 18 B/P (MAP) 139/79 Pulse Ox 100 O2 Delivery Nasal Cannula O2 Flow Rate 2 FiO2 28 LABS: Laboratory: Test 05/15/24 16:56 05/15/24 08:15 Range/Units Whole Blood Glucose 205 #H 70-110 MG/DL Serum Test, Qualitative NEGATIVE NEGATIVE DIAGNOSTICS / RADIOLOGY: [ ] ASSESSMENT: Colonic inertia S/P robotic total colectomy with ileorectal anastomosis ,Extensive lysis of adhesions omental flap creation ,Systemic ICG and Flexible sigmoidoscopy POA Chronic constipation POA GERD POA Fatty liver disease Seizure disorder POA Anxiety disorder POA Depression POA Diabetes POA Hyperlipdemia POA Obesity POA Hiustory of hernia repair POA History oif cholecystectomy History of Lap gastrojejunostomy POA History of Lap vertical partial gastrectomy POA PLAN: We will follow patient in medical surgical floor Home meds reconciled and will hold Midodrine if SBP above 110 mmHg Continue IV fluids Diet per surgery recommendation We will replace electrolytes as needed per protocol We will start on insulin sliding scale AC & HS with hypoglycemia protocol We will add prn medication for fever,pain,nausea & vomiting We will request labs in am Further orders to follow depending on above results Case discussed with attending physician and came up with above treatment and plan of care. ADVANCED CARE PLANNING 1. Which of the following were discussed? Hospice Care - No Therapeutic options - Yes Advance Directives - No Other discussions - 2. Discussed with who? Patient 3. Voluntary nature of this service was explained to the patient? Yes 4. Amount of time spent - _18 5. Reviewed by Physician? (if this service was performed by NPP) Yes Patient seen and examined by me. Agree with note by ELECTROMECHANISMS DESIGN DRAFTER SEE ADDITIONAL ORDERS PER CHART DISCUSSED WITH NURSING STAFF PERICO AGUIAR SPARE HAND May 15, 2024 20:23
[2024-05-15] MEDS: GABAPENTIN 300 MG CAPSULE PO SCH (20:40)
[2024-05-15] MEDS: hydroMORPHone 0.5 MG SYG (0.5MG/0.5ML) IVP PRN (20:42)
[2024-05-15] MEDS ORDERED: PoTASSium chl 10% ELIXIR 20MEQ 20 MEQ/15 ML UDCUP PO PRN (21:00)
[2024-05-15] MEDS: divALPRoex SOdium 250 MG TAB PO SCH (21:00)
[2024-05-15] MEDS ORDERED: PoTASSium chloRIDE 20MEQ/100ML 100 ML IV PRN (21:00)
[2024-05-15] MEDS ORDERED: PoTASSium chloRIDE 20MEQ ER 20 MEQ ERTAB PO PRN (21:00)
[2024-05-15] MEDS: BENZTROPINE 0.5MG TAB PO SCH (21:00)
[2024-05-15] MEDS ORDERED: ondanSETRON 4MG TABLET PO PRN (21:00)
[2024-05-15] MEDS: queTIAPine fuMARate 100 MG TAB PO SCH (21:00)
[2024-05-15] MEDS: atorVAStatin 40 MG TABLET PO SCH (21:00)
[2024-05-15] MEDS: miDODRine HCL 5 MG TABLET PO SCH (21:00)
[2024-05-15] MEDS ORDERED: laMOTRigine 100 MG TABLET PO SCH (21:00)
[2024-05-15] MEDS: leveTIRACEtam 500 MG TABLET PO SCH (21:00)
[2024-05-16] VITALS (9 sets, daily range): BP systolic 103–138; BP diastolic 63–77; PULSE 81–99; RESP 18–20; TEMP 98.2–98.6; O2SAT 93–98
[2024-05-16] MEDS ORDERED: acetaMINOPHEN 325 MG TAB PO SCH (06:00)
[2024-05-16] MEDS: acetaMINOPHEN 325 MG TAB PO SCH (06:07)
[2024-05-16] MEDS: INSULIN humuLIN R 100 UNIT/ML 3ML SQ SCH (06:08)
[2024-05-16 07:12] LABS: BASOPHILS # (AUTO) 0.03 K/uL (0.00-0.20); BASOPHILS % (AUTO) 0.3 % (0.0-5.0); IMMATURE GRANULOCYTE ABSOLUTE 0.03 K/uL (0-1); LYMPHOCYTES # (AUTO) 2.8 K/uL (1.0-4.8); LYMPHOCYTES % (AUTO) 29.3 % (21.0-51.0); MEAN CORPUSCULAR HEMOGLOBIN 32.4 pg (27.0-33.0); MEAN CORPUSCULAR HGB CONC 33.7 g/dL (32.0-36.0); MEAN CORPUSCULAR VOLUME 96.2 fL (79-99); MONOCYTES % (AUTO) 9.9 % (3.0-13.0); NEUTROPHILS # (AUTO) 5.8 K/uL (1.8-7.7); NEUTROPHILS % (AUTO) 60.2 % (40.0-77.0); PLATELET COUNT (AUTO) 192 K/uL (130-400); RED BLOOD CELL COUNT(AUTO) 3.64 MIL/uL (4.00-5.50); RED CELL DISTRIBUTION WIDTH 13.2 % (11.0-15.5); WHITE BLOOD COUNT (AUTO) 9.6 K/uL (4.8-10.8)
[2024-05-16 07:18] LABS: CREATININE 0.8 mg/dL (0.5-1.0); POTASSIUM 4.1 mmol/L (3.5-5.1); THYROID STIMULATING HORMONE 0.74 uIU/mL (0.36-3.74)
[2024-05-16 07:20] LABS: HEMOGLOBIN A1C 5.2 % (4.0-6.0)
[2024-05-16 07:42] LABS: MAGNESIUM 1.6 mg/dL (1.80-2.40)
--- NOTE | 2024-05-16 08:38 | PN ---
[facility] PROGRESS NOTE Date of Service: May 16, 2024 Time of Service: 08:37 SUBJECTIVE: [ ] This is a 48-year-old female with past medical history of diabetes, hyperlipidemia, anxiety disorder, depression,obesity, gastritis, GERD, fatty liver disease, seizure disorder, bariatric surgery, gastroparesis , colonic polyps and chronic constipation who under S/P robotic total colectomy with ileorectal anastomosis with extensive lysis of adhesions,omental flap creation ,systemic ICG and flexible sigmoidoscopy performed by Dr.Dustin Cano today 05/15/2024. 05/16/2024 status post day one recuperating well. Patient was seen and examined Dr. Green. Patient reports ambulating and using IS while awake. REVIEW OF SYSTEMS CONSTITUTIONAL: Denies fevers, chills, or night sweats. No unintentional weight loss reported. NEUROLOGICAL: Denies headache, amaurosis fugax, motor weakness, sensory deficit, vertigo/spinning sensation, gait abnormalities, or tremors. ENT: No hearing loss, otalgia, otorrhea, rhinitis, rhinorrhea, hoarseness, or sore throat. CARDIOVASCULAR: Denies any exertional angina, dyspnea on exertion, orthopnea, paroxysmal nocturnal dyspnea, palpitations, life-threatening arrhythmias, claudication. PULMONARY: Denies any shortness of breath, cough, phlegm/sputum, hemoptysis, pleuritic chest pain. SLEEP: Denies morning headaches, daytime somnolence or napping. Denies difficulty falling asleep, staying asleep, waking from sleep. Denies knowledge of snoring. GASTROINTESTINAL:+ abdominal pain to incision site Denies any type of dysphagia to either liquids or solids. Denies nausea, vomiting, pyrosis, early satiety, diarrhea, constipation, or changes in stool consistency or caliber. Denies coffee-ground emesis, hematemesis, hematochezia, or melanotic stools. GENITOURINARY: Denies frequency, urgency, nocturia, hematuria or incontinence (Storage/Irritative symptoms.) Low urinary stream, straining to void, urinary intermittency or hesitancy, splitting of the voiding stream, terminal dribbling. ENDOCRINOLOGIC: Denies polyuria, polydipsia, polyphagia or heat/cold intolerances. HEMATOLOGIC: Denies thrombophilia/previous clots, or coagulopathy/bleeding disorders. ONCOLOGIC: Denies personal history of malignancy. DERMATOLOGIC: Denies rashes or pruritus. PSYCHIATRIC: Denies any suicidal or homicidal ideation. Denies hallucinations. PHYSICAL EXAM GENERAL APPEARANCE: The patient is awake, alert, and oriented, in no acute cardiopulmonary distress. NEUROLOGICAL: Cranial nerves II-XII grossly intact. Motor is 5/5 in bilateral upper and lower extremities proximal to distal. No sensory deficits. HEENT: Face is symmetric. Pupils are equal and reactive. Extraocular movements are intact. NECK: Supple. No JVD. No thyromegaly. No submental, submandibular, pre- /postauricular, occipital or supraclavicular lymphadenopathy. CHEST: Normal chest expansion. No Telemetry. LUNGS: Absence of any rales, rhonchi or any wheezing. CARDIOVASCULAR: Regular. S1 and S2 normal. No appreciable rubs, murmurs or gallops. ABDOMEN: Diffuse Abdominal tenderness on light palpation.Left DAGMAR Soft and nondistended. There is no rebound, voluntary guarding, or rigidity. : Deferred.+ Ahumada. EXTREMITIES: Non-edematous and not cyanotic. No clubbing. Good capillary refill. SKIN: No skin breakdown. Vital Signs (last 8hr) Date Time Temp Pulse Resp B/P (MAP) Pulse Ox O2 Delivery O2 Flow Rate FiO2 05/16/24 07:00 98.4 90 18 132/71 93 Room Air 05/16/24 03:06 98.4 96 20 138/77 98 LABS: Laboratory: Test 05/16/24 06:43 05/16/24 06:05 05/15/24 08:15 Range/Units White Blood Count 9.6 4.8-10.8 K/uL Red Blood Count 3.64 L 4.00-5.50 MIL/uL Hemoglobin 11.8 L 12.0-16.0 g/dL Hematocrit 35.0 L 36-48 % Mean Corpuscular Volume 96.2 79-99 fL Mean Corpuscular Hemoglobin 32.4 27.0-33.0 pg Mean Corpuscular Hemoglobin Concent 33.7 32.0-36.0 g/dL Red Cell Distribution Width 13.2 11.0-15.5 % Platelet Count 192 130-400 K/uL Mean Platelet Volume 10.7 H 7.5-10.5 fL Immature Granulocyte % (Auto) 0.3 0-1 % Neutrophils (%) (Auto) 60.2 40.0-77.0 % Lymphocytes (%) (Auto) 29.3 21.0-51.0 % Monocytes (%) (Auto) 9.9 3.0-13.0 % Eosinophils (%) (Auto) 0.0 0.0-8.0 % Basophils (%) (Auto) 0.3 0.0-5.0 % Neutrophils # (Auto) 5.8 1.8-7.7 K/uL Lymphocytes # (Auto) 2.8 1.0-4.8 K/uL Monocytes # (Auto) 1.0 0.1-1.0 K/uL Eosinophils # (Auto) 0.00 0.00-0.70 K/uL Basophils # (Auto) 0.03 0.00-0.20 K/uL Absolute Immature Granulocyte (auto 0.03 0-1 K/uL Nucleated Red Blood Cells 0.0 0.0-0.19 % Sodium Level 140 136-145 mmol/L Potassium Level 4.1 3.5-5.1 mmol/L Chloride Level 106 101-111 mmol/L Carbon Dioxide Level 28 21-32 mmol/L Blood Urea Nitrogen 8 7-18 mg/dL Creatinine 0.8 0.5-1.0 mg/dL Glomerular Filtration Rate Calc 90 >90 mL/min Random Glucose 97 70-105 mg/dL Hemoglobin A1c 5.2 4.0-6.0 % Estimated Average Glucose (eAG) 103 70-126 mg/dL Total Calcium 8.5 8.5-10.1 mg/dL Magnesium Level 1.60 L 1.80-2.40 mg/dL Triglycerides Level 64 30-200 mg/dL Cholesterol Level 77 <200 mg/dL LDL Cholesterol 24 0-99 mg/dL HDL Cholesterol 43 35-85 mg/dL Thyroid Stimulating Hormone (TSH) 0.74 0.36-3.74 uIU/mL Whole Blood Glucose 101 70-110 MG/DL Serum Test, Qualitative NEGATIVE NEGATIVE Current Medications Medications (Trade) Dose Ordered Sig/[place] Route PRN Reason Start Time Stop Time Status Last Admin Dose Admin Acetaminophen (TYLenol 325MG TAB) 650 mg Q6H PO 05/15/24 17:00 05/16/24 05:26 DC 05/15/24 23:53 650 MG Acetaminophen (TYLenol 325MG TAB) 650 mg Q6H PO 05/16/24 06:00 05/16/24 05:35 DC Acetaminophen (TYLenol 325MG TAB) 650 mg Q6H PO 05/16/24 06:00 06/15/24 05:59 05/16/24 06:07 650 MG Atorvastatin Calcium (LIPItor 40MG) 40 mg HS PO 05/15/24 21:00 06/14/24 20:59 Benztropine Mesylate (Cogentin 0.5mg Tab) 2 mg HS PO 05/15/24 21:00 06/14/24 20:59 Divalproex Sodium (DepaKOTE 250 mg) 250 mg BID PO 05/15/24 21:00 06/14/24 20:59 Duloxetine HCl (CymbALTA 30 mg CAP) 60 mg DAILY PO 05/16/24 09:00 06/15/24 08:59 Enoxaparin Sodium (Lovenox) 40 mg DAILY SQ 05/16/24 09:00 06/15/24 08:59 Gabapentin (NEURontin 300 MG CAP) 300 mg DAILY PO 05/16/24 09:00 06/15/24 08:59 Gabapentin (NEURontin 300 MG CAP) 300 mg TID PO 05/15/24 21:00 05/15/24 21:13 DC 05/15/24 20:40 300 MG Home Med (Home Medication) DAILY PO 05/16/24 09:00 06/15/24 08:59 Hydromorphone HCl (DiLAUDid 0.5MG INJ) 0.5 mg Q4H PRN IVP SEVERE PAIN (7-10) 05/15/24 17:00 05/20/24 16:59 05/16/24 02:41 0.5 MG Insulin Human Regular (humuLIN R 100 UNIT/ML 3ML) ACHS SQ 05/16/24 07:00 06/14/24 16:59 Insulin Human Regular (humuLIN R 100 UNIT/ML 3ML) AD PRN SQ SLIDING SCALE COVERAGE 05/15/24 17:00 05/16/24 01:01 DC Lactated Ringer's 1,000 ml @ 50 mls/hr Q20H IV 05/15/24 17:00 06/14/24 16:59 05/15/24 18:10 50 MLS/HR Lamotrigine (LAMIctal 100 MG TABLET) 100 mg BID PO 05/15/24 21:00 05/15/24 21:13 DC Levetiracetam (kepPRA 500 MG TABLET) 750 mg BID PO 05/15/24 21:00 06/14/24 20:59 Magnesium Sulfate 50 ml @ 0 mls/hr PROTOCOL PRN IV OTHER [SEE ORDER COMMENTS] 05/15/24 21:00 06/14/24 20:59 Midodrine (PROAMatine 5 MG TABLET) 10 mg TID PO 05/15/24 21:00 05/16/24 00:45 DC Midodrine (PROAMatine 5 MG TABLET) 10 mg TID PO 05/16/24 09:00 06/15/24 08:59 Ondansetron HCl (zoFRAN 4MG TABLET) 4 mg TID PRN PO NAUSEA/VOMITING 05/15/24 21:00 05/15/24 20:36 DC Ondansetron HCl (zoFRAN 4MG INJ) 4 mg Q4H PRN IVP NAUSEA 05/15/24 17:00 06/14/24 16:59 05/15/24 19:42 4 MG Oxycodone HCl (ROXicoDONE) 5 mg Q4H PRN PO SEVERE PAIN (7-10) 05/15/24 17:00 05/22/24 16:59 Pantoprazole Sodium (PROTonix 40MG TAB) 40 mg DAILY PO 05/16/24 09:00 06/15/24 08:59 Potassium Chloride 100 ml @ 100 mls/hr AD PRN IV POTASSIUM PROTOCOL 05/15/24 21:00 06/14/24 20:59 Potassium Chloride (K-Dur/Klor-Con 20meq) 20 meq AD PRN PO POTASSIUM PROTOCOL 05/15/24 21:00 06/14/24 20:59 Potassium Chloride (KCl 10% Elixir 20meq/15ml) 20 meq AD PRN PO POTASSIUM PROTOCOL 05/15/24 21:00 06/14/24 20:59 Quetiapine Fumarate (SEROquel 100 mg TAB) 400 mg BID PO 05/15/24 21:00 06/14/24 20:59 Thiamine HCl (Vitamin B-1) 100 mg DAILY PO 05/16/24 09:00 06/15/24 08:59 DIAGNOSTICS / RADIOLOGY: [ ] ASSESSMENT: Colonic inertia S/P robotic total colectomy with ileorectal anastomosis ,Extensive lysis of adhesions omental flap creation ,Systemic ICG and Flexible sigmoidoscopy POA Chronic constipation POA GERD POA Fatty liver disease Seizure disorder POA Anxiety disorder POA Depression POA Diabetes POA Hyperlipdemia POA Obesity POA Hiustory of hernia repair POA History oif cholecystectomy History of Lap gastrojejunostomy POA History of Lap vertical partial gastrectomy POA PLAN: We will follow patient in medical surgical floor We will follow postoperative surgeon's recommendations. Continue IV fluids Diet defer to surgeon Continue electrolytes replacement as needed per protocol Continue with insulin sliding scale AC & HS with hypoglycemia protocol Continue with add prn medication for fever,pain,nausea & vomiting We will request labs in am Questions addressed Further orders to follow depending on above results Case discussed with attending physician and came up with above treatment and pl an of care. Thank you for consulting hospitalist for medical management. ATTESTATION BY PHYSICIAN I have seen and examined the patient. I reviewed the documentation, medical decision making, and treatment plan as noted by the mid-level provider above. I agree with the findings and plan of care. KESHAWN GREEN MD, ELIZABETH NP May 16, 2024 08:38
--- NOTE | 2024-05-16 08:49 | PN ---
GASTROENTEROLOGY PROGRESS NOTE Date of Consultation: May 16, 2024 Time of Consultation: 08:48 Events / Notes: [48 Yo with colonic inertia who underwent a robotic total abdominal colectomy with ileorectal anastomosis, extensive lysis of adhesions, omental flap creation, systemic icg for assessment of anastomotic grafts and flexible sigmoidoscopy for anastomotic leak test. She was found ambulating with steady gait in hallway. Respirations are unlabored. Assessment completed. BBS clear. Abdomen is soft and not distended. +bs x 4. DAGMAR drain with bloody discharge. 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 She is due to void. She has tolerated soft diet. Encouraged ambulation and I/S exercises. Patient and partner verbalized understanding and agreement. ] Review of Systems: CONSTITUTIONAL: No malaise or change in sensation of wellbeing. ENMT: No rhinorrhea, otorrhea, sinus pain, ear ache. CARDIOVASCULAR: No angina, palpitations, orthopnea or paroxysmal dyspnea. RESPIRATORY: No SOB. GASTROINTESTINAL: No abdominal pain, nausea, vomiting, diarrhea, hematemesis, melena or change in the patient's habitual bowel movements consistency/number. GENITOURINARY: No dysuria, hematuria or change in bladder continence. MUSCULOSKELETAL: No new muscle pain or decrease in muscular strength. No new joint swelling, redness or tenderness. SKIN: No new rash. Physical Exam: GEN: Awake, alert, oriented in person, time and place, and in no acute distress. HEENTNo rhinorrhea. Oral pharyngeal mucosa is pink, moist and within normal limits. CHEST: Inspection, palpation and percussion of the chest were unremarkable. Lung auscultation revealed normal breath sounds bilaterally. CARDIAC: Heart sounds are regular ABD: Soft, mildly tender and not distended. No peritoneal signs on palpation. No organomegaly. Normal bowel sounds. Incisions dry and intact rotating field assembler. DAGMAR drain with bloody discharge. EXT: No cyanosis or clubbing. No edema. SKIN: Intact. No rashes. JOINTS: No evidence of synovitis or acute arthritis. NEURO: Alert and oriented to name, place and person. Cranial nerve examination is unremarkable. No focal motor deficits. Normal speech. Gait is normal. Strength is normal. Vital Signs (last 8hr) Date Time Temp Pulse Resp B/P (MAP) Pulse Ox O2 Delivery O2 Flow Rate FiO2 05/16/24 07:00 98.4 90 18 132/71 93 Room Air 05/16/24 03:06 98.4 96 20 138/77 98 Laboratory: [ ] Laboratory: Test 05/16/24 06:43 05/16/24 06:05 05/15/24 08:15 Range/Units White Blood Count 9.6 4.8-10.8 K/uL Red Blood Count 3.64 L 4.00-5.50 MIL/uL Hemoglobin 11.8 L 12.0-16.0 g/dL Hematocrit 35.0 L 36-48 % Mean Corpuscular Volume 96.2 79-99 fL Mean Corpuscular Hemoglobin 32.4 27.0-33.0 pg Mean Corpuscular Hemoglobin Concent 33.7 32.0-36.0 g/dL Red Cell Distribution Width 13.2 11.0-15.5 % Platelet Count 192 130-400 K/uL Mean Platelet Volume 10.7 H 7.5-10.5 fL Immature Granulocyte % (Auto) 0.3 0-1 % Neutrophils (%) (Auto) 60.2 40.0-77.0 % Lymphocytes (%) (Auto) 29.3 21.0-51.0 % Monocytes (%) (Auto) 9.9 3.0-13.0 % Eosinophils (%) (Auto) 0.0 0.0-8.0 % Basophils (%) (Auto) 0.3 0.0-5.0 % Neutrophils # (Auto) 5.8 1.8-7.7 K/uL Lymphocytes # (Auto) 2.8 1.0-4.8 K/uL Monocytes # (Auto) 1.0 0.1-1.0 K/uL Eosinophils # (Auto) 0.00 0.00-0.70 K/uL Basophils # (Auto) 0.03 0.00-0.20 K/uL Absolute Immature Granulocyte (auto 0.03 0-1 K/uL Nucleated Red Blood Cells 0.0 0.0-0.19 % Sodium Level 140 136-145 mmol/L Potassium Level 4.1 3.5-5.1 mmol/L Chloride Level 106 101-111 mmol/L Carbon Dioxide Level 28 21-32 mmol/L Blood Urea Nitrogen 8 7-18 mg/dL Creatinine 0.8 0.5-1.0 mg/dL Glomerular Filtration Rate Calc 90 >90 mL/min Random Glucose 97 70-105 mg/dL Hemoglobin A1c 5.2 4.0-6.0 % Estimated Average Glucose (eAG) 103 70-126 mg/dL Total Calcium 8.5 8.5-10.1 mg/dL Magnesium Level 1.60 L 1.80-2.40 mg/dL Triglycerides Level 64 30-200 mg/dL Cholesterol Level 77 <200 mg/dL LDL Cholesterol 24 0-99 mg/dL HDL Cholesterol 43 35-85 mg/dL Thyroid Stimulating Hormone (TSH) 0.74 0.36-3.74 uIU/mL Whole Blood Glucose 101 70-110 MG/DL Serum Test, Qualitative NEGATIVE NEGATIVE Current Medications Medications (Trade) Dose Ordered Sig/Jefferson Route PRN Reason Start Time Stop Time Status Last Admin Dose Admin Acetaminophen (TYLenol 325MG TAB) 650 mg Q6H PO 05/15/24 17:00 05/16/24 05:26 DC 05/15/24 23:53 650 MG Acetaminophen (TYLenol 325MG TAB) 650 mg Q6H PO 05/16/24 06:00 05/16/24 05:35 DC Acetaminophen (TYLenol 325MG TAB) 650 mg Q6H PO 05/16/24 06:00 06/15/24 05:59 05/16/24 06:07 650 MG Atorvastatin Calcium (LIPItor 40MG) 40 mg HS PO 05/15/24 21:00 06/14/24 20:59 Benztropine Mesylate (Cogentin 0.5mg Tab) 2 mg HS PO 05/15/24 21:00 06/14/24 20:59 Divalproex Sodium (DepaKOTE 250 mg) 250 mg BID PO 05/15/24 21:00 06/14/24 20:59 Duloxetine HCl (CymbALTA 30 mg CAP) 60 mg DAILY PO 05/16/24 09:00 06/15/24 08:59 Enoxaparin Sodium (Lovenox) 40 mg DAILY SQ 05/16/24 09:00 06/15/24 08:59 Gabapentin (NEURontin 300 MG CAP) 300 mg DAILY PO 05/16/24 09:00 06/15/24 08:59 Gabapentin (NEURontin 300 MG CAP) 300 mg TID PO 05/15/24 21:00 05/15/24 21:13 DC 05/15/24 20:40 300 MG Home Med (Home Medication) DAILY PO 05/16/24 09:00 06/15/24 08:59 Hydromorphone HCl (DiLAUDid 0.5MG INJ) 0.5 mg Q4H PRN IVP SEVERE PAIN (7-10) 05/15/24 17:00 05/20/24 16:59 05/16/24 02:41 0.5 MG Insulin Human Regular (humuLIN R 100 UNIT/ML 3ML) ACHS SQ 05/16/24 07:00 06/14/24 16:59 Insulin Human Regular (humuLIN R 100 UNIT/ML 3ML) AD PRN SQ SLIDING SCALE COVERAGE 05/15/24 17:00 05/16/24 01:01 DC Lactated Ringer's 1,000 ml @ 50 mls/hr Q20H IV 05/15/24 17:00 06/14/24 16:59 05/15/24 18:10 50 MLS/HR Lamotrigine (LAMIctal 100 MG TABLET) 100 mg BID PO 05/15/24 21:00 05/15/24 21:13 DC Levetiracetam (kepPRA 500 MG TABLET) 750 mg BID PO 05/15/24 21:00 06/14/24 20:59 Magnesium Sulfate 50 ml @ 0 mls/hr PROTOCOL PRN IV OTHER [SEE ORDER COMMENTS] 05/15/24 21:00 06/14/24 20:59 Midodrine (PROAMatine 5 MG TABLET) 10 mg TID PO 05/15/24 21:00 05/16/24 00:45 DC Midodrine (PROAMatine 5 MG TABLET) 10 mg TID PO 05/16/24 09:00 06/15/24 08:59 Ondansetron HCl (zoFRAN 4MG TABLET) 4 mg TID PRN PO NAUSEA/VOMITING 05/15/24 21:00 05/15/24 20:36 DC Ondansetron HCl (zoFRAN 4MG INJ) 4 mg Q4H PRN IVP NAUSEA 05/15/24 17:00 06/14/24 16:59 05/15/24 19:42 4 MG Oxycodone HCl (ROXicoDONE) 5 mg Q4H PRN PO SEVERE PAIN (7-10) 05/15/24 17:00 05/22/24 16:59 Pantoprazole Sodium (PROTonix 40MG TAB) 40 mg DAILY PO 05/16/24 09:00 06/15/24 08:59 Potassium Chloride 100 ml @ 100 mls/hr AD PRN IV POTASSIUM PROTOCOL 05/15/24 21:00 06/14/24 20:59 Potassium Chloride (K-Dur/Klor-Con 20meq) 20 meq AD PRN PO POTASSIUM PROTOCOL 05/15/24 21:00 06/14/24 20:59 Potassium Chloride (KCl 10% Elixir 20meq/15ml) 20 meq AD PRN PO POTASSIUM PROTOCOL 05/15/24 21:00 06/14/24 20:59 Quetiapine Fumarate (SEROquel 100 mg TAB) 400 mg BID PO 05/15/24 21:00 06/14/24 20:59 Thiamine HCl (Vitamin B-1) 100 mg DAILY PO 05/16/24 09:00 06/15/24 08:59 Assessment: [Colonic inertia--The patient is progressing well on POD 1. She has tolerated her diet without any n/v. BBS clear and abdomen is soft. Active BS present. She is ambulating with steady gait and pain is controlled. Plan to continue monitoring patient progress with possibility of discharge tomorrow. ] Plan: [Continue with soft diet Encourage ambulation Encourage I/S exercises Pain meds as needed. Antiemetics prn Plan for disposition in the next 24-48 hours Please call with questions, concerns, and change in clinical status. Appreciate hospitalist's assistance in our patient care. ] ZION AKBAR NP May 16, 2024 08:49
[2024-05-16] MEDS: Fenofibrate 160 MG PO SCH (09:00)
[2024-05-16] MEDS: miDODRine HCL 5 MG TABLET PO SCH (09:00)
[2024-05-16] MEDS: ENOXAPARIN SODIUM 40 MG/0.4 ML SYRINGE SQ SCH (09:48)
[2024-05-16] MEDS: duloXETine HCL 30 MG CAP PO SCH (09:48)
[2024-05-16] MEDS: GABAPENTIN 300 MG CAPSULE PO SCH (09:49)
[2024-05-16] MEDS: THIAMINE HCL 100 MG TABLET PO SCH (09:49)
[2024-05-16] MEDS: PANTOPrazole 40 MG TAB DR PO SCH (09:49)
[2024-05-16] MEDS: MAGNESIUM 2GM PREMIX 50ML 50 ML IV PRN (16:49)
[2024-05-17 03:31] VITALS: BP 124/74; PULSE 89; RESP 18; TEMP 98.7
[2024-05-17 06:49] LABS: BASOPHILS # (AUTO) 0.05 K/uL (0.00-0.20); BASOPHILS % (AUTO) 0.6 % (0.0-5.0); EOSINOPHILS # (AUTO) 0.08 K/uL (0.00-0.70); EOSINOPHILS % (AUTO) 0.9 % (0.0-8.0); HEMATOCRIT 35.2 % (36-48); IMMATURE GRANULOCYTE ABSOLUTE 0.03 K/uL (0-1); LYMPHOCYTES # (AUTO) 1.9 K/uL (1.0-4.8); LYMPHOCYTES % (AUTO) 22.1 % (21.0-51.0); MEAN CORPUSCULAR HEMOGLOBIN 31.9 pg (27.0-33.0); MEAN CORPUSCULAR HGB CONC 32.4 g/dL (32.0-36.0); MEAN CORPUSCULAR VOLUME 98.6 fL (79-99); MONOCYTES # (AUTO) 0.9 K/uL (0.1-1.0); MONOCYTES % (AUTO) 10.1 % (3.0-13.0); NEUTROPHILS # (AUTO) 5.7 K/uL (1.8-7.7); PLATELET COUNT (AUTO) 172 K/uL (130-400); RED BLOOD CELL COUNT(AUTO) 3.57 MIL/uL (4.00-5.50); RED CELL DISTRIBUTION WIDTH 13.2 % (11.0-15.5); WHITE BLOOD COUNT (AUTO) 8.6 K/uL (4.8-10.8)
[2024-05-17 06:50] LABS: CREATININE 0.7 mg/dL (0.5-1.0)
[2024-05-17 07:17] VITALS: BP 109/71; PULSE 94; RESP 18; TEMP 99
[2024-05-17 08:00] VITALS: O2SAT 96
--- NOTE | 2024-05-17 08:50 | PN ---
[facility] PROGRESS NOTE Date of Service: May 17, 2024 Time of Service: 08:48 SUBJECTIVE: [ ] This is a 48-year-old female with past medical history of diabetes, hyperlipidemia, anxiety disorder, depression,obesity, gastritis, GERD, fatty liver disease, seizure disorder, bariatric surgery, gastroparesis , colonic polyps and chronic constipation who under S/P robotic total colectomy with ileorectal anastomosis with extensive lysis of adhesions,omental flap creation ,systemic ICG and flexible sigmoidoscopy performed by Dr.Dustin Cano today 05/15/2024. 05/16/2024 status post day one recuperating well. Patient was seen and examined Dr. Green. Patient reports ambulating and using IS while awake. 05/17/2024 status post 2 recuperating well no nausea no vomiting tolerating regular diet. . Patient is hemodynamically stable REVIEW OF SYSTEMS CONSTITUTIONAL: Denies fevers, chills, or night sweats. No unintentional weight loss reported. NEUROLOGICAL: Denies headache, amaurosis fugax, motor weakness, sensory deficit, vertigo/spinning sensation, gait abnormalities, or tremors. ENT: No hearing loss, otalgia, otorrhea, rhinitis, rhinorrhea, hoarseness, or sore throat. CARDIOVASCULAR: Denies any exertional angina, dyspnea on exertion, orthopnea, paroxysmal nocturnal dyspnea, palpitations, life-threatening arrhythmias, claudication. PULMONARY: Denies any shortness of breath, cough, phlegm/sputum, hemoptysis, pleuritic chest pain. SLEEP: Denies morning headaches, daytime somnolence or napping. Denies difficulty falling asleep, staying asleep, waking from sleep. Denies knowledge of snoring. GASTROINTESTINAL:+ abdominal pain to incision site Denies any type of dysphagia to either liquids or solids. Denies nausea, vomiting, pyrosis, early satiety, diarrhea, constipation, or changes in stool consistency or caliber. Denies coff ee-ground emesis, hematemesis, hematochezia, or melanotic stools. GENITOURINARY: Denies frequency, urgency, nocturia, hematuria or incontinence (Storage/Irritative symptoms.) Low urinary stream, straining to void, urinary intermittency or hesitancy, splitting of the voiding stream, terminal dribbling. ENDOCRINOLOGIC: Denies polyuria, polydipsia, polyphagia or heat/cold intolerances. HEMATOLOGIC: Denies thrombophilia/previous clots, or coagulopathy/bleeding disorders. ONCOLOGIC: Denies personal history of malignancy. DERMATOLOGIC: Denies rashes or pruritus. PSYCHIATRIC: Denies any suicidal or homicidal ideation. Denies hallucinations. PHYSICAL EXAM GENERAL APPEARANCE: The patient is awake, alert, and oriented, in no acute cardiopulmonary distress. NEUROLOGICAL: Cranial nerves II-XII grossly intact. Motor is 5/5 in bilateral upper and lower extremities proximal to distal. No sensory deficits. HEENT: Face is symmetric. Pupils are equal and reactive. Extraocular movements are intact. NECK: Supple. No JVD. No thyromegaly. No submental, submandibular, pre- /postauricular, occipital or supraclavicular lymphadenopathy. CHEST: Normal chest expansion. No Telemetry. LUNGS: Absence of any rales, rhonchi or any wheezing. CARDIOVASCULAR: Regular. S1 and S2 normal. No appreciable rubs, murmurs or gallops. ABDOMEN: Diffuse Abdominal tenderness on light palpation.Left DAGMAR Soft and nondistended. There is no rebound, voluntary guarding, or rigidity. : Deferred.+ [place]. EXTREMITIES: Non-edematous and not cyanotic. No clubbing. Good capillary refill. SKIN: No skin breakdown. Vital Signs (last 8hr) Date Time Temp Pulse Resp B/P (MAP) Pulse Ox O2 Delivery O2 Flow Rate FiO2 05/17/24 07:17 99.0 94 18 109/71 96 Room Air 05/17/24 03:31 98.8 89 18 124/74 98 Room Air LABS: Laboratory: Test 05/17/24 06:29 05/17/24 06:27 05/16/24 16:20 05/16/24 06:43 Range/Units White Blood Count 8.6 4.8-10.8 K/uL Red Blood Count 3.57 L 4.00-5.50 MIL/uL Hemoglobin 11.4 L 12.0-16.0 g/dL Hematocrit 35.2 L 36-48 % Mean Corpuscular Volume 98.6 79-99 fL Mean Corpuscular Hemoglobin 31.9 27.0-33.0 pg Mean Corpuscular Hemoglobin Concent 32.4 32.0-36.0 g/dL Red Cell Distribution Width 13.2 11.0-15.5 % Platelet Count 172 130-400 K/uL Mean Platelet Volume 10.5 7.5-10.5 fL Immature Granulocyte % (Auto) 0.3 0-1 % Neutrophils (%) (Auto) 66.0 40.0-77.0 % Lymphocytes (%) (Auto) 22.1 21.0-51.0 % Monocytes (%) (Auto) 10.1 3.0-13.0 % Eosinophils (%) (Auto) 0.9 0.0-8.0 % Basophils (%) (Auto) 0.6 0.0-5.0 % Neutrophils # (Auto) 5.7 1.8-7.7 K/uL Lymphocytes # (Auto) 1.9 1.0-4.8 K/uL Monocytes # (Auto) 0.9 0.1-1.0 K/uL Eosinophils # (Auto) 0.08 0.00-0.70 K/uL Basophils # (Auto) 0.05 0.00-0.20 K/uL Absolute Immature Granulocyte (auto 0.03 0-1 K/uL Nucleated Red Blood Cells 0.0 0.0-0.19 % Sodium Level 141 136-145 mmol/L Potassium Level 4.0 3.5-5.1 mmol/L Chloride Level 106 101-111 mmol/L Carbon Dioxide Level 29 21-32 mmol/L Blood Urea Nitrogen 6 L 7-18 mg/dL Creatinine 0.7 0.5-1.0 mg/dL Glomerular Filtration Rate Calc 106 >90 mL/min Random Glucose 114 H 70-105 mg/dL Total Calcium 8.8 8.5-10.1 mg/dL Whole Blood Glucose 115 H 70-110 MG/DL Bedside Glucose Comment Notified Nurse Hemoglobin A1c 5.2 4.0-6.0 % Estimated Average Glucose (eAG) 103 70-126 mg/dL Magnesium Level 1.60 L 1.80-2.40 mg/dL Triglycerides Level 64 30-200 mg/dL Cholesterol Level 77 <200 mg/dL LDL Cholesterol 24 0-99 mg/dL HDL Cholesterol 43 35-85 mg/dL Thyroid Stimulating Hormone (TSH) 0.74 0.36-3.74 uIU/mL Current Medications Medications (Trade) Dose Ordered Sig/Jefferson Route PRN Reason Start Time Stop Time Status Last Admin Dose Admin Acetaminophen (TYLenol 325MG TAB) 650 mg Q6H PO 05/15/24 17:00 05/16/24 05:26 DC 05/15/24 23:53 650 MG Acetaminophen (TYLenol 325MG TAB) 650 mg Q6H PO 05/16/24 06:00 05/16/24 05:35 DC Acetaminophen (TYLenol 325MG TAB) 650 mg Q6H PO 05/16/24 06:00 06/15/24 05:59 05/17/24 06:02 650 MG Atorvastatin Calcium (LIPItor 40MG) 40 mg HS PO 05/15/24 21:00 06/14/24 20:59 05/16/24 20:45 40 MG Benztropine Mesylate (Cogentin 0.5mg Tab) 2 mg HS PO 05/15/24 21:00 06/14/24 20:59 05/16/24 20:43 2 MG Divalproex Sodium (DepaKOTE 250 mg) 250 mg BID PO 05/15/24 21:00 06/14/24 20:59 05/16/24 20:44 250 MG Duloxetine HCl (CymbALTA 30 mg CAP) 60 mg DAILY PO 05/16/24 09:00 06/15/24 08:59 05/16/24 09:48 60 MG Enoxaparin Sodium (Lovenox) 40 mg DAILY SQ 05/16/24 09:00 06/15/24 08:59 05/16/24 09:48 40 MG Gabapentin (NEURontin 300 MG CAP) 300 mg DAILY PO 05/16/24 09:00 06/15/24 08:59 05/16/24 09:49 300 MG Gabapentin (NEURontin 300 MG CAP) 300 mg TID PO 05/15/24 21:00 05/15/24 21:13 DC 05/15/24 20:40 300 MG Home Med (Home Medication) FENOFIBRATE 160 MG-1 TAB... DAILY PO 05/16/24 09:00 06/15/24 08:59 Hydromorphone HCl (DiLAUDid 0.5MG INJ) 0.5 mg Q4H PRN IVP SEVERE PAIN (7-10) 05/15/24 17:00 05/20/24 16:59 05/16/24 09:54 0.5 MG Insulin Human Regular (humuLIN R 100 UNIT/ML 3ML) ACHS SQ 05/16/24 07:00 06/14/24 16:59 Insulin Human Regular (humuLIN R 100 UNIT/ML 3ML) AD PRN SQ SLIDING SCALE COVERAGE 05/15/24 17:00 05/16/24 01:01 DC Lactated Ringer's 1,000 ml @ 50 mls/hr Q20H IV 05/15/24 17:00 06/14/24 16:59 05/16/24 11:04 50 MLS/HR Lamotrigine (LAMIctal 100 MG TABLET) 100 mg BID PO 05/15/24 21:00 05/15/24 21:13 DC Levetiracetam (kepPRA 500 MG TABLET) 750 mg BID PO 05/15/24 21:00 06/14/24 20:59 05/16/24 20:45 750 MG Magnesium Sulfate 50 ml @ 0 mls/hr PROTOCOL PRN IV OTHER [SEE ORDER COMMENTS] 05/15/24 21:00 06/14/24 20:59 05/16/24 16:49 0 MLS/HR Midodrine (PROAMatine 5 MG TABLET) 10 mg TID PO 05/15/24 21:00 05/16/24 00:45 DC Midodrine (PROAMatine 5 MG TABLET) 10 mg TID PO 05/16/24 09:00 06/15/24 08:59 Ondansetron HCl (zoFRAN 4MG TABLET) 4 mg TID PRN PO NAUSEA/VOMITING 05/15/24 21:00 05/15/24 20:36 DC Ondansetron HCl (zoFRAN 4MG INJ) 4 mg Q4H PRN IVP NAUSEA 05/15/24 17:00 06/14/24 16:59 05/15/24 19:42 4 MG Oxycodone HCl (ROXicoDONE) 5 mg Q4H PRN PO SEVERE PAIN (7-10) 05/15/24 17:00 05/22/24 16:59 Pantoprazole Sodium (PROTonix 40MG TAB) 40 mg DAILY PO 05/16/24 09:00 06/15/24 08:59 05/16/24 09:49 40 MG Potassium Chloride 100 ml @ 100 mls/hr AD PRN IV POTASSIUM PROTOCOL 05/15/24 21:00 06/14/24 20:59 Potassium Chloride (K-Dur/Klor-Con 20meq) 20 meq AD PRN PO POTASSIUM PROTOCOL 05/15/24 21:00 06/14/24 20:59 Potassium Chloride (KCl 10% Elixir 20meq/15ml) 20 meq AD PRN PO POTASSIUM PROTOCOL 05/15/24 21:00 06/14/24 20:59 Quetiapine Fumarate (SEROquel 100 mg TAB) 400 mg BID PO 05/15/24 21:00 06/14/24 20:59 05/16/24 20:45 400 MG Thiamine HCl (Vitamin B-1) 100 mg DAILY PO 05/16/24 09:00 06/15/24 08:59 05/16/24 09:49 100 MG DIAGNOSTICS / RADIOLOGY: [ ] ASSESSMENT: Colonic inertia S/P robotic total colectomy with ileorectal anastomosis ,Extensive lysis of adhesions omental flap creation ,Systemic ICG and Flexible sigmoidoscopy POA Chronic constipation POA GERD POA Fatty liver disease Seizure disorder POA Anxiety disorder POA Depression POA Diabetes POA Hyperlipdemia POA Obesity POA Hiustory of hernia repair POA History oif cholecystectomy History of Lap gastrojejunostomy POA History of Lap vertical partial gastrectomy POA PLAN: We will follow patient in medical surgical floor We will follow postoperative surgeon's recommendations. Diet defer to surgeon tolerating diet no episodes of nausea and vomiting. Continue electrolytes replacement as needed per protocol Continue with insulin sliding scale AC & HS with hypoglycemia protocol Continue with add prn medication for fever,pain,nausea & vomiting We will request labs in am Questions addressed Further orders to follow depending on above results Case discussed with attending physician and came up with above treatment and plan of care. Thank you for consulting hospitalist for medical management. We will sign off. ATTESTATION BY PHYSICIAN I have seen and examined the patient. I reviewed the documentation, medical decision making, and treatment plan as noted by the mid-level provider above. I agree with the findings and plan of care. KESHAWN GREEN MD, ELIZABETH NP May 17, 2024 08:50
--- NOTE | 2024-05-17 10:15 | DS ---
Discharge Summary DIAGNOSE(S): [Colonic Inertia] HOSPITAL COURSE SUMMARY: [No acute events overnight. The patient is progressing well. She is eating well without any n/v. Abd is soft and not distended. Pain is controlled. She has had a watery stool and continues to pass flatus. She had anglin cath reinserted d/t inability to void. Bladder training was done and anglin cath removed this morning. Plan for discharge home today. Home care instructions with ER warnings given to patient and her spouse. Informed patient she may need to have anglin reinserted if she is unable to void. If she goes home with anglin, she will f/u at [facility] office on Tuesday Morning, otherwise, she is to keep office appt on 05/30/24. She and spouse verbalized understanding and agreement. ] GARDEN IMPLEMENT MECHANIC(S): [Dr. Man] PROCEDURE(S)/TREATMENT(S): [ Robotic total colectomy with ileorectal anastomosis Extensive lysis of adhesions lasting greater than 1 hour, extended procedural service, not typical for this type of case Omental flap creation Systemic ICG For assessment of anastomotic grafts Flexible sigmoidoscopy for anastomotic leak test ] DISCHARGE INSTRUCTIONS: [ ada dIET Continue with i/s exercises No driving, heavy lifting pushing or pulling any weight greater than 10 lbs keep f/u appt on 05/30/24 at 2:30pm at [facility]. F/u on 05/25/24 in am if patient has anglin reinserted. ER warnings given. Appreciate hospitalist's assistance. ] Home Meds Reported Medications Thiamine HCl (Vitamin B-1) 100 Mg Tablet, 1 TAB PO DAILY for 30 Days, #30 TAB 0 Refills 05/15/24 Rosuvastatin Calcium (Rosuvastatin Calcium) 10 Mg Tablet, 1 TAB PO HS for 30 Days, #30 TAB 0 Refills 05/15/24 Linaclotide (Linzess) 290 Mcg Capsule, 1 CAP PO DAILY for 30 Days, #30 CAP 0 Refills 05/15/24 Ondansetron HCl (Ondansetron HCl) 8 Mg Tablet, 1 TAB PO TID PRN for NAUSEA/VOMITING for 10 Days, #30 TAB 0 Refills 05/15/24 Fenofibrate (Fenofibrate) 160 Mg Tablet, 1 TAB PO DAILY for 30 Days, #30 TAB 0 Refills 05/15/24 Quetiapine Fumarate (Quetiapine Fumarate) 400 Mg Tablet, 1 TAB PO BID for 30 Days, #30 TAB 0 Refills 05/15/24 Levetiracetam (Keppra) 750 Mg Tablet, 1 TAB PO BID for 30 Days, #60 TAB 0 Refills 05/15/24 Duloxetine HCl (Duloxetine HCl) 60 Mg Capsule.dr, 1 CAP PO DAILY for 30 Days, #30 CAP 0 Refills 05/15/24 Divalproex Sodium (Divalproex Sodium) 250 Mg Tablet.dr, 1 TAB PO BID for 30 Days, #60 TAB 0 Refills 05/15/24 Gabapentin (Neurontin) 300 Mg Capsule, 300 MG PO DAILY, CAP 05/15/24 Lamotrigine (Lamotrigine) 100 Mg Tablet, 1 TAB PO BID for 30 Days, #60 TAB 0 Refills 05/15/24 Benztropine Mesylate (Benztropine Mesylate) 2 Mg Tablet, 2 MG PO HS, TAB 05/15/24 Esomeprazole Magnesium (Esomeprazole Magnesium) 40 Mg Capsule.dr, 1 CAP PO DAILY for 30 Days, #30 CAP 0 Refills 05/15/24 Midodrine HCl (Midodrine HCl) 10 Mg Tablet, 1 TAB PO TID for 30 Days, #90 TAB 0 Refills 05/15/24 Semaglutide (Ozempic) 2 Mg/0.75 Ml (8 Mg/3 Ml) Pen.injctr, 2 MG SQ QWEEK for 30 Days, #3 ML 0 Refills 05/15/24 Discontinued Reported Medications Quetiapine Fumarate (Quetiapine Fumarate) 400 Mg Tablet, 400 MG PO BID, TAB 10/04/22 Levetiracetam (Keppra) 1,000 Mg Tablet, 2000 MG PO HS, TAB 10/04/22 Levetiracetam (Keppra) 1,000 Mg Tablet, 1000 MG PO DAILY, TAB 10/04/22 Divalproex Sodium (Divalproex Sodium) 500 Mg Tablet.dr, 500 MG PO BID, TAB 10/04/22 Zaleplon (Zaleplon) 10 Mg Capsule, 10 MG PO HS, CAP 10/04/22 Fenofibrate (Fenofibrate) 160 Mg Tablet, 160 MG PO DAILY, TAB 10/04/22 Omeprazole (Omeprazole) 40 Mg Capsule.dr, 40 MG PO DAILY, CAP 10/04/22 Gabapentin (Neurontin) 300 Mg Capsule, 600 MG PO HS, CAP 10/04/22 Gabapentin (Neurontin) 300 Mg Capsule, 300 MG PO DAILY, CAP 10/04/22 Lamotrigine (Lamotrigine) 100 Mg Tablet, 100 MG PO BID, TAB 10/04/22 Duloxetine HCl (Duloxetine HCl) 60 Mg Capsule.dr, 60 MG PO HS, CAP 10/04/22 Rosuvastatin Calcium (Rosuvastatin Calcium) 10 Mg Tablet, 10 MG PO HS, TAB 10/04/22 Benztropine Mesylate (Benztropine Mesylate) 2 Mg Tablet, 2 MG PO HS, TAB 10/04/22 Time spent arranging discharge: 1-30 minutes ZION AKBAR NP May 17, 2024 10:15
[2024-05-17] MEDS: tamSULOsin HCL 0.4 MG CAP.ER.24H PO ONE (10:22)
[2024-05-17 11:41] VITALS: BP 105/62; PULSE 110; RESP 20; TEMP 98.3
== END 2024-05-17 18:20 | disposition home or self-care (01) | DRG 328 ==
LOC: DAHIP 05-15 07:25 → WSH 05-15 18:00
PROVIDERS: ADMIT Surgery; ATTEND Surgery
PROC: 0DJD8ZZ Inspection of Lower Intestinal Tract, Via Natural or Artificial Opening Endoscopic (ICD-10-PCS; 2024-05-15)
PROC: 0D1 Gastrointestinal System, Bypass (ICD-10-PCS; principal; 2024-05-15 09:17)
PROC: 0DN64ZZ Release Stomach, Percutaneous Endoscopic Approach (ICD-10-PCS; 2024-05-15 09:17)
PROC: 0DXU4ZW Transfer Omentum to Abdominal Region, Percutaneous Endoscopic Approach (ICD-10-PCS; 2024-05-15 09:17)
DX: K59.01 Slow transit constipation (principal); E66.9 Obesity, unspecified; E78.5 Hyperlipidemia, unspecified; F32.A Depression, unspecified; F41.9 Anxiety disorder, unspecified; G40.909 Epilepsy, unspecified, not intractable, without status epilepticus; E11.9 Type 2 diabetes mellitus without complications; K21.9 Gastro-esophageal reflux disease without esophagitis; K76.0 Fatty (change of) liver, not elsewhere classified; Z90.3 Acquired absence of stomach [part of]; Z79.899 Other long term (current) drug therapy; Z90.49 Acquired absence of other specified parts of digestive tract
CPT/HCPCS: 36415; 45330; 80048; 80053; 80061; 82948; 83036; 83735; 84443; 84703; 85025; 85610; 85730; 86850; 86900; 86901; 93005; A4344; J1100; J1171; J1650; J2003; J2175; J2185; J2371; J2405; J2704; J2710; J3010; J3475; J3490; J7030; J7120; A4215; A4216; A4221; A4222; A4223; A4600; A4649; A4663; A4930; A6204; A6260; J0665

== ENCOUNTER → 2025-03-04 | Outpatient (CLI) | payer OTHER ==
[~2025-03-04] MED LIST changes: +DIVA-76 PO; -DIVA-78 PO; +ESOM40CA66 PO; -LEVE1000 PO; +LEVE750T4 PO; +LINA290C PO; +MIDO10TA3 PO; -OMEP40CA21 PO; +ONDA-105 PO; +SEMA2PEN SQ; +THIA100T91 PO; -ZALE10CA26 PO
--- NOTE | 2025-03-04 13:19 | HMCIMG ---
DOUBLE CONTRAST UPPER GI SERIES: Remaining: The study was performed using provocative maneuvers After swallowing effervescent crystal and thick barium, there is no definite intrinsic or extrinsic lesion seen in the esophagus. The stomach is deformed. Due to gastric sleeve surgery. There is a small hiatal hernia with grade 1 esophageal reflux.The rugal folds appear to be normal. The duodenal bulb, duodenal sweep, and upper jejunum appear to be normal. Fluoroscopy time: 0.6 minute. IMPRESSION: Status post gastric sleeve surgery Small hiatal hernia with grade 1 esophageal reflux.
== END | disposition home or self-care (01) ==
LOC: RAH 08:30
PROVIDERS: ATTEND Surgery
DX: K21.9 Gastro-esophageal reflux disease without esophagitis (principal); K44.9 Diaphragmatic hernia without obstruction or gangrene; K31.84 Gastroparesis; R11.2 Nausea with vomiting, unspecified; Z98.84 Bariatric surgery status
CPT/HCPCS: 74240

== ENCOUNTER 2025-03-21 07:18 | Day surgery (SDC) | payer OTHER ==
[~2025-03-21] VITALS: Ht 167.6 cm; Wt 93.9 kg
[2025-03-21] VITALS (12 sets, daily range): BP systolic 94–137; BP diastolic 50–87; PULSE 58–87; RESP 12–18; TEMP 97.3–97.7
[~2025-03-21 07:18] MED LIST changes: -DULO60CA64 PO
[2025-03-21] MEDS ORDERED: MIDAZOLAM HCL 1 MG/ML 2ML VIAL ONE (07:38)
[2025-03-21] MEDS ORDERED: LIDOCAINE PF 100MG/5ML (2%) SYRINGE 5ML ONE (07:39)
[2025-03-21] MEDS ORDERED: SUCCINYLCHOLINE CHLORIDE 20 MG/ML 10 ML VIAL ONE (07:39)
[2025-03-21] MEDS: 0.9%NACL 1000ML 1,000 ML IV ONE (07:49)
[2025-03-21] MEDS ORDERED: ERGO500093 PO (08:12)
[2025-03-21] MEDS ORDERED: DULO60CA64 PO (08:12)
--- NOTE | 2025-03-21 09:10 | NUR ---
BOTH PT AND FAMILY GIVEN VERBAL AND WRITTEN DISCHARGE INSTRUCTIONS. IV REMOVED SITE ASYMPTOMATIC. PT TAKEN OUT VIA WHEELCHAIR FAMILY DRIVING.
--- NOTE | 2025-03-21 09:45 | NUR ---
BOTH PT AND FAMILY MEMBER GIVEN VERBAL AND WRITTEN DISCHARGE INSTRUCTIONS. IV REMOVED SITE ASYMPTOMATIC. PT TAKEN OUT VIA WHEELCHAIR FAMILY DRIVING
== END 2025-03-21 09:45 | disposition home or self-care (01) ==
LOC: DAH 07:18
PROVIDERS: ATTEND Surgery
DX: R11.2 Nausea with vomiting, unspecified (principal); K31.84 Gastroparesis; K31.89 Other diseases of stomach and duodenum; K30 Functional dyspepsia; Z98.0 Intestinal bypass and anastomosis status; K22.89 Other specified disease of esophagus; E55.9 Vitamin D deficiency, unspecified; K21.9 Gastro-esophageal reflux disease without esophagitis; E11.9 Type 2 diabetes mellitus without complications; E66.01 Morbid (severe) obesity due to excess calories; E78.5 Hyperlipidemia, unspecified; Z86.0100 Personal history of colon polyps, unspecified; Z90.49 Acquired absence of other specified parts of digestive tract; Z68.33 Body mass index [BMI] 33.0-33.9, adult; Z98.84 Bariatric surgery status; Z98.890 Other specified postprocedural states; Z88.8 Allergy status to other drugs, medicaments and biological substances; Z79.899 Other long term (current) drug therapy
CPT/HCPCS: 43239; 82948; 81025; J3010; J0330; J7030; J2003; J2250; J2704; J2371; A4620; A4215; A4223; J3490